=== PATIENT | female | born 1960 | race Caucasian/White ===

== ENCOUNTER → 2016-12-05 | Outpatient (CLI) | payer OTHER ==
[2016-12-05 11:56] LABS: ALT 18 U/L (9-52); AST 24 U/L (14-36); Alkaline Phosphatase 38 U/L (38-126); Anion Gap 7 mmol/L; Blood Urea Nitrogen 14 mg/dL (7-17); Calcium 9.2 mg/dL (8.4-10.2); Carbon Dioxide 28 mmol/L (22-30); Chloride 105 mmol/L (98-107); Glucose 59 mg/dL (74-99); Non-African American GFR(MDRD) >60 (>60 ml/min/1.73 sqM); Potassium 3.8 mmol/L (3.5-5.1); Sodium 140 mmol/L (137-145); Total Bilirubin 0.8 mg/dL (0.2-1.3); Total Protein 7.3 g/dL (6.3-8.2)
--- NOTE | 2016-12-05 12:48 | CT ---
EXAMINATION TYPE: CT ChestAbdPelvis w con DATE OF EXAM: 12/05/2016 COMPARISON: Previous study dated 06/19/2016 HISTORY: Lt breast CA CT DLP: 629.3 mGycm Automated exposure control for dose reduction was used. TECHNIQUE: Helical acquisition through the abdomen and pelvis was obtained without oral contrast but following the intravenous administration of 100 mL of Omnipaque 300. The data was formatted in the a xial, coronal and sagittal projections. FINDINGS: There is dependent atelectasis in the dependent portions of the lungs. The lungs are otherw ise clear. The thyroid gland is enlarged and heterogenous. There are several enhancing nodules. The largest josie ures 12.8 mm. This is identical in size to the previous study. Left axillary lymph node which previously measured 10.6 mm now measures 9.4 mm. There is no other sig nificant axillary, internal mammary, mediastinal or hilar adenopathy. The heart is mildly enlarged. T here is no pleural or pericardial fluid. The lesion in the dome of the liver which previously measure d 3.7 cm now measures 3.3 cm. Multiple other lesions within the liver have decreased in, security fro m the previous exam. The gallbladder is contracted. The spleen appears normal. There is continued thickening of the left adrenal gland. Left adrenal mass has decreased in size from 3.2 cm to 2 cm. The pancreas is unremarkable. Both kidneys demonstrate function and are morphologically normal. There is mild atheromatous calcification of the visualized arterial tree. There is no significant retroperitoneal, iliac or inguinal adenopathy. The uterus is unremarkable. The ovaries are normal. The bladder appears normal. There is no significant diverticular change and there is no radiographic evidence of diverticulitis. The appendix appears normal. Small bowel loops appear normal. There is no evidence of free fluid or free air. There continue to be innumerable sclerotic metastases throughout the skeleton. These do not appear to have changed significantly in comparison with previous IMPRESSION: 1. STABLE BONY METASTASES. 2. IMPROVEMENT IN THE SIZE OF THE PATIENT'S LEFT AXILLARY LYMPH NODE. 3. DECREASE IN THE SIZE OF THE HEPATIC DOME LESION. 4. THYROMEGALY, UNCHANGED FROM PREVIOUS. 5. IMPROVED APPEARANCE OF THE LEFT ADRENAL GLAND. 6. THE STUDY IS FELT TO BE STABLE OR SLIGHTLY IMPROVED.
[2016-12-05 13:04] LABS: Anisocytosis Slight; Aty Lym Flag Slight; CH 36.9; CHCM 33.1; HDW 2.51; HGB 13.1 gm/dL (11.4-16.0); MCH 37.6 pg (25.0-35.0); MCHC 33.6 g/dL (31.0-37.0); MCV 111.9 fL (80.0-100.0); Macrocytosis Marked; Mean Platelet Volume 8.3; RBC 3.48 m/uL (3.80-5.40); RDW 16.3 % (11.5-15.5); WBC 2.5 k/uL (3.8-10.6)
[2016-12-05 14:24] LABS: Add Differential Manual Differential
[2016-12-05 14:26] LABS: Manual Review Performed; Nucleated Red Blood Cells 0 /100 WBC (0-0); Total Cells Counted 100
== END | disposition home or self-care (01) ==
LOC: RADCTMAIN 11:00
PROVIDERS: ATTEND Internal Medicine Hematology & Oncology
DX: C50.312 Malignant neoplasm of lower-inner quadrant of left female breast (principal); C79.51 Secondary malignant neoplasm of bone; K76.9 Liver disease, unspecified; M25.519 Pain in unspecified shoulder; D72.819 Decreased white blood cell count, unspecified; G89.3 Neoplasm related pain (acute) (chronic)
CPT/HCPCS: 80053; 85025; 71260; 74177; 36415; Q9967

== ENCOUNTER → 2017-05-26 | Outpatient (CLI) | payer OTHER ==
[2017-05-26 13:32] LABS: Non-African American GFR(MDRD) >60 (>60 ml/min/1.73 sqM)
[2017-05-26 13:36] LABS: Blood Urea Nitrogen 13 mg/dL (7-17)
--- NOTE | 2017-05-26 14:25 | CT ---
EXAMINATION TYPE: CT ChestAbdPelvis w con DATE OF EXAM: 05/26/2017 COMPARISON: December 05, 2016 HISTORY: Follow up scan per patient CT DLP: 1733 mGycm CONTRAST: CT scan of the chest, abdomen and pelvis is performed with Oral Contrast and with IV Contrast, patien t injected with 100 mL of Omnipaque 300. CT Chest: LUNGS: The lungs are clear and free of infiltrate or atelectasis. No pulmonary nodule or mass is det ected. No pleural effusion or CT evidence of interstitial lung disease. MEDIASTINUM: Thoracic aorta is of normal caliber. The heart is not enlarged. No evidence for media stinal mass or adenopathy. HILAR STRUCTURES: No evidence for mass. No hilar adenopathy is appreciated. OTHER: Left axillary adenopathy persists and currently measures 9.4 mm versus 9.4 mm. No new axillary adenopathy appreciated. Left sided lumpectomy changes. There is evidence of thyroidomegaly. CONTRAST CT ABDOMEN AND PELVIS FINDINGS: LIVER/GB: No calcified gallstones. Lesion within the dome of the liver currently measures 3.3 x 2.2 cm versus 3.3 x 2.2 cm previously and appears essentially unchanged. No new hepatic lesions are iden tified. Biliary tree is of normal caliber. PANCREAS: No inflammation. No distinct mass. SPLEEN: No splenic enlargement. ADRENALS: Left adrenal lesion persists although is smaller in size and measures 1.0 centimeter versu s 1.4 cm. KIDNEYS/BLADDER: No hydronephrosis. No nephrolithiasis. No distinct renal mass. BOWEL: Normal appendix. Normal bowel caliber. No inflammation. GENITAL ORGANS: No gross abnormality. LYMPH NODES: No greater than 1cm abdominal or pelvic lymph nodes are appreciated. AORTA: No significant abnormality. OSSEOUS STRUCTURES: Again noted are lytic and blastic metastases throughout the visualized skeleton. OTHER: No significant additional abnormality is seen. IMPRESSION: 1. Stable osseous metastatic disease. 2. Stable lesion within the dome of the liver. 3. Stable left axillary adenopathy. 4. Continued improvement left adrenal gland nodule.
== END | disposition home or self-care (01) ==
LOC: RADCTMAIN 12:35
PROVIDERS: ATTEND Internal Medicine Hematology & Oncology
DX: C79.51 Secondary malignant neoplasm of bone (principal); C50.312 Malignant neoplasm of lower-inner quadrant of left female breast; K76.9 Liver disease, unspecified; R59.0 Localized enlarged lymph nodes; E27.8 Other specified disorders of adrenal gland
CPT/HCPCS: 82565; 84520; 71260; 74177; Q9967

== ENCOUNTER → 2017-09-16 | Outpatient (CLI) | payer OTHER ==
--- NOTE | 2017-09-16 15:22 | MR ---
EXAMINATION TYPE: MR thoracic spine wo/w con DATE OF EXAM: 09/16/2017 COMPARISON: NONE HISTORY: Back pain, breast CA CONTRAST: Performed utilizing 7.5 mL intravenous Gadavist gadolinium contrast. TECHNIQUE: Multiplanar, multiecho imaging on a 3.0 Nataly magnet is performed through the thoracic spi ne. Extensive metastatic lesions are throughout the visualized spine involving essentially every osseous structure. Compression deformities of T5, superior endplate T7, T9 are evident. At T5 there is some central osseous bulge with moderate anterior thecal sac compression. This may hav e cord contact. Cord deformity is not identified. No AP spinal canal stenosis is present. In the sagittal plane and some posterior T7 wall displacement into the spinal canal appears to be pre sent. This area is not visualized in the axial plane. Cord contact is not identified Spinal cord maintains normal signal through its visualized course. There is some exaggeration of the mid thoracic kyphosis Mild disc space narrowing within the mid to upper thoracic spine is present. No spinal canal stenosis is evident. Incidental note is made of a heterogenous appearance to the enlarged thyroid and the [id number] IMPRESSIONS: 1. Extensive metastatic disease throughout the visualized thoracic spine. 2. Compression deformities T5, T9 and superior endplate T7. 3. Posterior wall displacement with moderate focal compression centrally at T5 is in close approximat ion with the spinal cord without deformity or spinal canal stenosis. 4. Mild posterior wall bulging into the thecal sac is present T7 without stenosis. 5. No suspicious changes of cord compression.
== END | disposition home or self-care (01) ==
LOC: RADMRIMAIN 13:34
PROVIDERS: ATTEND Internal Medicine Hematology & Oncology
DX: C79.51 Secondary malignant neoplasm of bone (principal); C50.312 Malignant neoplasm of lower-inner quadrant of left female breast; M51.24 Other intervertebral disc displacement, thoracic region; G95.29 Other cord compression
CPT/HCPCS: 72157; A9581

== ENCOUNTER → 2017-10-06 | Outpatient (CLI) | payer MEDICARE, OTHER ==
[2017-10-06 19:33] LABS: Blood Urea Nitrogen 14 mg/dL (7-17)
--- NOTE | 2017-10-07 09:32 | CT ---
EXAMINATION TYPE: CT ChestAbdPelvis w con DATE OF EXAM: 10/06/2017 INDICATION: Breast CA, observation for mets, lower back pain COMPARISON: 05/26/2017 CT DLP: 1335 mGycm CONTRAST: Performed with Oral Contrast and with IV Contrast, patient injected with 100 mL of Isovue 300. TECHNIQUE: Axial images at 5 mm thick sections. Reconstructed images in the coronal plane. Delayed images through the kidneys. FINDINGS: CT CHEST: Thyroid is somewhat prominent. There is some heterogeneity within the inferior pole right lobe thyroi d. Underlying mass may be present. Consider additional evaluation with ultrasound. No suspicious lung nodules or focal infiltrates are present. No enlarged mediastinal or hilar adenopathy is evident. There is a 1.0 cm left axillary lymph node pr esent. The ascending aorta diameter at the level of the main pulmonary artery is 3.5 cm. The main pulmonary artery diameter at the bifurcation is 2.[address] ABDOMEN: Liver: There is an ill-defined hypodensity within the posterior right upper lobe liver measuring 4.3 x 2.7 cm. This is slightly smaller than the comparison study. Some biliary dilatation may be present. Spleen: Normal Pancreas: Normal Adrenal glands: There is some thickening of the left adrenal gland estimated 1.3 cm transverse dimens ion. This appears stable from prior study. Right adrenal gland appears normal. Gallbladder: Normal Kidneys: No masses are evident. No hydronephrosis is present. No cysts are present. Delayed images were obtained through the kidneys, which remain unremarkable. Aorta: Vascular calcification is within the aorta. Inferior vena cava: Normal. CT PELVIS: Loops of bowel within the abdomen and pelvis are normal. There are loops of bowel which are incom pletely distended or lack oral contrast limiting their evaluation. Appendix: Normal as visualized. Urinary bladder: Normal. Genitourinary structures: Uterus appears normal. Adnexal regions are unremarkable. Osseous structures: Multiple punctate sclerotic areas are throughout the pelvis. Sclerotic metastasis should be considered. These extend into the sacrum and spine. There are some lytic areas within the vertebral bodies is well. Findings were present previously. The lytic area in the posterior wall T10 vertebral level appears stable. Old compression deformities are within the mid and lower thoracic spi ne and appears stable without progression. IMPRESSIONS: 1. Stable appearance of multiple lytic and sclerotic lesions throughout the axial skeleton within the pelvis. 2. 1.0 cm lymph node left axillary region present previously. 3. Enlarged thickened adrenal gland appears stable. 4. Hypodensity within the posterior right upper liver slightly smaller than comparison 4. Enlarged thyroid appears stable.
== END | disposition home or self-care (01) ==
LOC: RADCTMAIN 18:42
PROVIDERS: ATTEND Internal Medicine Hematology & Oncology
DX: E04.9 Nontoxic goiter, unspecified (principal); R93.2 Abnormal findings on diagnostic imaging of liver and biliary tract; C50.312 Malignant neoplasm of lower-inner quadrant of left female breast; Z88.5 Allergy status to narcotic agent
CPT/HCPCS: 82565; 84520; 71260; 74177; 36415; Q9967

== ENCOUNTER → 2018-02-06 | Outpatient (CLI) | payer MEDICARE ==
[2018-02-06 12:48] LABS: Blood Urea Nitrogen 13 mg/dL (7-17)
--- NOTE | 2018-02-06 14:37 | CT ---
EXAMINATION TYPE: CT ChestAbdPelvis w con DATE OF EXAM: 02/06/2018 COMPARISON: 10/06/2017 and 06/19/2016 HISTORY: History of breast cancer CT DLP: 866.4 mGycm. Automated Exposure Control for Dose Reduction was Utilized. CONTRAST: CT scan of the thorax, abdomen and pelvis is performed with IV Contrast, patient injected with 100 mL of Isovue M300. FINDINGS: LUNGS: The lungs are grossly clear, there is no concerning parenchymal mass or nodule identified. Sca ttered areas of subsegmental atelectasis are seen. There is no pleural effusion or pneumothorax see n. The tracheobronchial tree is patent. MEDIASTINUM: There are no greater than 1 cm hilar or mediastinal lymph nodes. No pericardial effusi on is seen. OTHER: Approximately 9 mm left axillary lymph node is similar to the prior (1 cm on the prior exam). Thyroid gland again is enlarged and heterogenous extending to the sternal notch. LIVER/GB: There is stability of the right hepatic dome approximately 4.2 x 2.7 cm metastatic lesion ( previous measurement of 4.3 x 2.7 cm) with multiple smaller metastatic hepatic lesion such as on seri es 3 image 44, image 53, image 50 and image 47 similar to the prior. These are also seen in the exam of 06/19/2016. The gallbladder is partially contracted. PANCREAS: No significant abnormality is seen. SPLEEN: No significant abnormality is seen. ADRENALS: There is persistent thickening of the left adrenal gland, similar to multiple prior exams. There does appear to be a discrete left adrenal gland lesion suspicious for metastasis measuring 1.2 cm on series 3 image 49. This is similar to the prior. KIDNEYS: There is malrotation of the right kidney, otherwise the kidneys are unremarkable without hyd ronephrosis. BOWEL: No evidence of large or small bowel dilatation. Moderate amount retained colonic stool is seen . Appendix is upper limits of normal size however there is no right lower quadrant or periappendiceal fat stranding. GENITAL ORGANS: No gross abnormality seen. LYMPH NODES: There is a right periaortic lymph node enlarged from the prior measuring1.0 cm in short axis on series 3 image 56. Additional prominent but nonenlarged left perirenal lymph node measures 9 mm in short axis on image 55 OSSEOUS STRUCTURES: Diffuse skeletal osseous metastasis, mixed sclerotic and lytic, is seen throughou t the visualized axial skeleton this was appreciated on prior exams. OTHER: Moderate calcific atheromatous changes are seen of the abdominal aorta and its branches. Abdom inal aorta is of normal course and caliber. IMPRESSION: Overall stable multifocal metastatic disease other than slight increase in size of a right periaortic lymph node. Metastatic disease includes multifocal hepatic metastasis, diffuse skeletal metastasis, left axillary fabiola metastasis, and left adrenal gland metastasis.
== END | disposition home or self-care (01) ==
LOC: RADCTMAIN 12:14
PROVIDERS: ATTEND Internal Medicine Hematology & Oncology
DX: C79.51 Secondary malignant neoplasm of bone (principal); C78.7 Secondary malignant neoplasm of liver and intrahepatic bile duct; C79.72 Secondary malignant neoplasm of left adrenal gland; C79.89 Secondary malignant neoplasm of other specified sites; C50.312 Malignant neoplasm of lower-inner quadrant of left female breast; Z88.5 Allergy status to narcotic agent
CPT/HCPCS: 82565; 84520; 71260; 74177; 36415; Q9967

== ENCOUNTER 2018-03-28 16:46 | Emergency (ER) | payer MEDICARE ==
[2018-03-28 16:52] VITALS: TEMP 98.1
[2018-03-28] MEDS ORDERED: HYDROmorphone 0.5 MG/0.5 ML SYRINGE IM STA (17:27)
--- NOTE | 2018-03-28 17:58 | XR ---
EXAMINATION TYPE: XR Hip RT and AP Pelvis DATE OF EXAM: 03/28/2018 COMPARISON: NONE HISTORY: Fall, reported history of metastatic breast carcinoma TECHNIQUE: A single AP view of the pelvis is obtained. Two views of the right hip are obtained. FINDINGS: Again seen is diffuse sclerotic lesions throughout the visualized osseous structures which are most c onsistent with reported history of metastatic breast carcinoma. There is no acute fracture/dislocation evident in the pelvis. The hip and sacroiliac joints appear s ymmetric and unremarkable. The overlying soft tissue appears unremarkable. Two views of right hip show no acute fracture or dislocation. No focal lytic or sclerotic lesion see n in the proximal femur. The overlying soft tissue is unremarkable. IMPRESSION: 1. No acute fracture or dislocation. 2. Diffuse sclerotic metastasis.
--- NOTE | 2018-03-28 18:00 | XR ---
EXAMINATION TYPE: XR knee complete bilateral DATE OF EXAM: 03/28/2018 CLINICAL HISTORY: Fall, history of metastatic breast carcinoma TECHNIQUE: Three views of the right knee are obtained. COMPARISON: None. FINDINGS: There is no acute fracture/dislocation. Joint spaces are preserved. No radio opaque foreig n bodies or soft tissue swelling. No suspicious lytic or sclerotic osseous lesions. IMPRESSION: No acute fracture or dislocation.
--- NOTE | 2018-03-28 18:03 | XR ---
EXAMINATION TYPE: XR shoulder complete RT DATE OF EXAM: 03/28/2018 CLINICAL HISTORY: Fall, history of breast carcinoma TECHNIQUE: Three views of the right shoulder are obtained. COMPARISON: None. FINDINGS: There is no acute fracture/dislocation evident in the right shoulder. The acromioclavicul ar and glenohumeral joint spaces appear within normal limits. Mixed lytic and sclerotic lesions are s een predominantly involving the glenoid and scapula. Several ribs also demonstrate sclerotic lesions. Scapular Y view reveals expansile and sclerotic lesions of multiple posterior ribs which may repeat represent healing fractures or more likely additional metastatic lesions. IMPRESSION: 1. No acute fracture or dislocation. 2. Numerous mixed lytic and sclerotic osseous lesions which are most consistent with known metastatic breast carcinoma.
--- NOTE | 2018-03-28 18:49 | ED ---
General Adult HPI - General Chief complaint: Fall Stated complaint: Fell Time Seen by Provider: 03/28/18 17:00 Source: patient, RN notes reviewed Mode of arrival: wheelchair Limitations: no limitations - History of Present Illness Initial comments: 58-year-old female presents to the emergency determine for a chief complaint of fall about one hour ago. Patient was walking through her living room when she stepped on a small toy. Patient states this caused her to fall onto her bilateral knees, right hip, and right shoulder. Patient did not injure her head neck or back. She did not lose consciousness. She denies any dizziness or lightheadedness preceding the fall. Patient states she fell on carpet. Patient states she has a history of metastatic breast cancer to the bone and would like x-rays to ensure nothing is broken. Patient states she takes Dilaudid and fentanyl at home for pain. Patient has no other complaints at this time including shortness of breath, chest pain, abdominal pain, nausea or vomiting, headache, or visual changes. - Related Data Home Medications Medication Instructions Recorded Confirmed Ondansetron Odt [Zofran ODT] 8 mg PO Q8HR PRN 04/11/15 04/11/15 Previous Rx's Medication Instructions Recorded Anastrozole [Arimidex] 1 mg PO DAILY #30 tab 04/03/15 Bisacodyl [Dulcolax] 5 mg PO DAILY PRN #30 tablet. 04/03/15 HYDROmorphone [Dilaudid] 2 mg PO Q2HR PRN #60 tab 04/03/15 Lactulose [Cephulac] 15 gm PO BID #480 ml 04/03/15 Omeprazole [PriLOSEC] 20 mg PO AC-BRKFST #30 capsule. 04/03/15 fentaNYL 50MCG/HR PATCH [Duragesic 1 patch TRANSDERM Q72H #12 patch 04/03/15 50MCG/HR] Levalbuterol Hfa Inhaler [Xopenex 1 puff INHALATION Q8HR #1 inhaler 04/21/15 Hfa Inhaler] Metoclopramide [Reglan] 5 mg PO ACHS #120 tab 04/21/15 Allergies Allergy/AdvReac Type Severity Reaction Status Date / Time meperidine HCl [From Demerol] Allergy Rash/Hives Verified 09/22/18 16:52 Review of Systems ROS Statement: Those systems with pertinent positive or pertinent negative responses have been documented in the HPI. ROS Other: All systems not noted in ROS Statement are negative. Past Medical History Past Medical History: Cancer Additional Past Medical History / Comment(s): metastatic breast cancer History of Any Multi-Drug Resistant Organisms: None Reported Past Surgical History: Orthopedic Surgery Additional Past Surgical History / Comment(s): LEFT KNEE SURGERY 2004 Past Anesthesia/Blood Transfusion Reactions: No Reported Reaction Past Psychological History: No Psychological Hx Reported Smoking Status: Current every day smoker Past Alcohol Use History: None Reported Past Drug Use History: None Reported - Past Family History Father History Unknown: Yes Mother History Unknown: Yes General Exam - General Exam Comments Initial Comments: Right knee and hip: Patient is able to flex right knee to 90 and fully extend right knee. 90 flexion of the right hip with full abduction and and extension. There is a small abrasion noted to the anterior right knee. Mild generalized tenderness to the right knee. Sensation intact in right lower extremity. PT pulse 2+ and capillary refill less than 2 seconds. No significant swelling noted to the right knee. No calf tenderness, negative Homans sign. Left knee: Patient is able to flex left knee to 60 and fully extend left knee. There is a small abrasion noted to the anterior left knee. Mild generalized tenderness to the left knee. Sensation intact in left lower extremity. PT pulse 2+ and capillary refill less than 2 seconds. Mild edema noted of left knee. No calf tenderness, negative Homans sign. Right shoulder: Patient has full range motion of the right shoulder including flexion and extension and abduction. Capillary refill less than 2 seconds and radial pulse 2+ in the right upper extremities. Sensation intact in right upper extremity including all digits. Real Estate Agent/Broker strength 5 out of 5. Mild tenderness noted to the posterior right shoulder. No tenderness elsewhere. Limitations: no limitations General appearance: alert, in no apparent distress Head exam: Present: atraumatic, normocephalic, normal inspection Eye exam: Present: normal appearance, PERRL, EOMI. Absent: scleral icterus, conjunctival injection, periorbital swelling ENT exam: Present: normal exam, mucous membranes moist Neck exam: Present: normal inspection, full ROM. Absent: tenderness, meningismus, lymphadenopathy Respiratory exam: Present: normal lung sounds bilaterally. Absent: respiratory distress, wheezes, rales, rhonchi, stridor Cardiovascular Exam: Present: regular rate, normal rhythm, normal heart sounds. Absent: systolic murmur, diastolic murmur, rubs, gallop, clicks GI/Abdominal exam: Present: soft, normal bowel sounds. Absent: distended, tenderness, guarding, rebound, rigid Back exam: Absent: tenderness (No tenderness in the cervical thoracic or lumbar spines) Neurological exam: Present: alert, oriented X3, CN II-XII intact Psychiatric exam: Present: normal affect, normal mood Course Vital Signs 03/28/18 16:49 Temperature 98.1 F Pulse Rate 95 Respiratory 18 Rate Blood Pressure 129/85 O2 Sat by Pulse 100 Oximetry Medical Decision Making - Medical Decision Making 58-year-old female presents to the emergency department for a chief complaint of fall occurring about one hour ago. Patient is a history of metastatic breast cancer to the bone. Patient states she injured bilateral knees, right hip, and right knee. Patient is concerned due to her metastatic cancer and would like x-rays of all joints stretcher nothing is broken. Daughter agrees with this. Exam as noted in the physical exam. Neurovascular intact in all extremities. Patient is ambulatory in the emergency department and is able to walk without difficulty.No acute fracture or dislocation of the right hip or pelvis. Diffuse sclerotic metastasis from known metastatic breast carcinoma. X -ray of the right shoulder shows no acute fracture or dislocation with numerous mixed lytic and sclerotic osseous lesions which are most consistent with known metastatic breast carcinoma. X-ray of the right knee shows no acute fracture or dislocation. Patient's pain is feeling much better after reevaluation. She is still able to ambulate without difficulty. She will be discharged home. She will continue to take Tylenol and Dilaudid at home for pain as previously directed. She will return if she has any worsening symptoms and she will follow up with primary care in 1-2 days. This was discussed with Dr Johnson. Disposition Clinical Impression: Fall Disposition: HOME SELF-CARE Condition: Good Instructions: R.I.C.E. Treatment (ED) Additional Instructions: Please continue to take pain medications for pain. Please rest ice and elevate the injuries. Please keep the abrasions clean and dry. Follow-up with primary care in 1-2 days. Return if you have any worsening symptoms. Is patient prescribed a controlled substance at d/c from ED?: No Referrals: Real Foy MD [Primary Care Provider] - 1-2 days Time of Disposition: 18:48
[2018-03-28 19:03] VITALS: BP 125/71; PULSE 87; RESP 16
== END 2018-03-28 19:00 | disposition home or self-care (01) ==
LOC: EC 16:46
DX: S80.211A Abrasion, right knee, initial encounter (principal); S80.212A Abrasion, left knee, initial encounter; S79.911A Unspecified injury of right hip, initial encounter; F17.200 Nicotine dependence, unspecified, uncomplicated; Z88.5 Allergy status to narcotic agent; Z85.3 Personal history of malignant neoplasm of breast; Z85.830 Personal history of malignant neoplasm of bone; W18.31XA Fall on same level due to stepping on an object, initial encounter; Y93.01 Activity, walking, marching and hiking; Y92.008 Other place in unspecified non-institutional (private) residence as the place of occurrence of the external cause
CPT/HCPCS: 73562; 73502; 73030; 99283; 96372; J1170

== ENCOUNTER → 2018-06-18 | Outpatient (CLI) | payer MEDICARE ==
[2018-06-18 09:27] LABS: Blood Urea Nitrogen 15 mg/dL (7-17)
--- NOTE | 2018-06-18 11:13 | CT ---
EXAMINATION TYPE: CT ChestAbdPelvis w con DATE OF EXAM: 06/18/2018 INDICATION: Follow up breast CA. COMPARISON: 02/06/2018 CT DLP: 1353 mGycm CONTRAST: Performed with Oral Contrast and with IV Contrast, patient injected with 100 mL of Isovue 300. TECHNIQUE: Axial images at 5 mm thick sections. Reconstructed images in the coronal plane. Delayed images through the kidneys. FINDINGS: CT CHEST: Thyroid appears enlarged and heterogenous. This could be further evaluated with ultrasound. Findings are similar to comparison.. No suspicious lung nodules or focal infiltrates are present. No enlarged mediastinal or hilar adenopathy is evident. The ascending aorta diameter at the level of the main pulmonary artery is 3.2 cm. The main pulmonary artery diameter at the bifurcation is 2.7 cm. Minimal coronary artery calcification may be present. CT ABDOMEN: Liver: There are multiple hypodensities scattered throughout the liver. There is a large hypodensity measuring 2.7 x 3.4 cm in the posterior right lobe liver adjacent diaphragm. This is smaller than th e comparison. Hypodensities in the lower right lobe liver which are somewhat larger than comparison. Hypodensity measuring 0.8 cm right anterior liver. Series 3 image 49. There is a new hypodensity in t he posterior right lobe liver measuring 1.7 cm has some peripheral enhancement. Findings are suggesti ve for metastatic disease. Spleen: Normal Pancreas: Normal Adrenal glands: Right adrenal gland appears normal. Left adrenal gland is thickened measuring 1.3 cm in transverse dimension. Gallbladder: Normal Kidneys: No masses are evident. No hydronephrosis is present. No cysts are present. Delayed images were obtained through the kidneys, which remain unremarkable. Aorta: Vascular calcification is within the aorta. Inferior vena cava: Normal. CT PELVIS: Loops of bowel within the abdomen and pelvis are normal. There are loops of bowel which are incom pletely distended or lack oral contrast limiting their evaluation. Appendix: Normal as visualized. Urinary bladder: Normal. Genitourinary structures: Uterus appears normal. Adnexal regions are within normal limits. There may be a 1.9 cm cyst on the left ovary. Osseous structures: There are multiple punctate sclerotic areas throughout the osseous structures. A few lytic areas may be within vertebral bodies. Findings are compatible with metastatic disease. IMPRESSIONS: 1. Metastatic changes within the liver. 2. Multiple osseous metastatic disease changes.
== END | disposition home or self-care (01) ==
LOC: RADCTMAIN 08:16
PROVIDERS: ATTEND Internal Medicine Hematology & Oncology
DX: C50.312 Malignant neoplasm of lower-inner quadrant of left female breast (principal); C78.7 Secondary malignant neoplasm of liver and intrahepatic bile duct; C79.51 Secondary malignant neoplasm of bone
CPT/HCPCS: 82565; 84520; 71260; 74177; 36415; Q9967

== ENCOUNTER → 2018-07-01 | Day surgery (SDC) | payer MEDICARE ==
[~2018-07-01] MED LIST: ALPRAZolam 0.5 MG TAB PO ONE; HYDROmorphone 1 MG/ML 1 ML SYRINGE IVP PRN
[2018-07-01 09:29] VITALS: BP 111/54; PULSE 81; RESP 14; TEMP 98.3
[2018-07-01 09:37] LABS: INR 0.9 (<1.2); Prothrombin Time 10.2 sec (9.0-12.0)
[2018-07-01 09:52] LABS: Mean Platelet Volume 8.4; Platelet Count 176 k/uL (150-450)
--- NOTE | 2018-07-01 11:46 | US ---
Discontinued liver biopsy HISTORY: Liver masses Real-time ultrasound was performed the liver. Exam correlated to prior CT 06/18/2018, 02/06/2018. Following discussion of the potential liver biopsy with the patient and patient's daughter and follow ing consultation with the referring clinician telephonically, it is elected to defer biopsy at this t jd. Consider follow-up CT in 3-6 months. IMPRESSION: Aborted liver biopsy
== END ==
LOC: RADPROMAIN 08:57
PROVIDERS: ATTEND Internal Medicine Hematology & Oncology
DX: K76.89 Other specified diseases of liver (principal); C50.312 Malignant neoplasm of lower-inner quadrant of left female breast; Z53.9 Procedure and treatment not carried out, unspecified reason
CPT/HCPCS: 76705; 85049; 85610

== ENCOUNTER → 2018-10-01 | Outpatient (CLI) | payer MEDICARE ==
--- NOTE | 2018-10-01 15:03 | CT ---
EXAMINATION TYPE: CT ChestAbdPelvis w con DATE OF EXAM: 10/01/2018 COMPARISON: 06/18/2018 HISTORY: 58-year-old female follow-up, breast cancer, observation for metastases. TECHNIQUE: Contiguous axial scanning of the chest, abdomen, and pelvis performed with IV Contrast, pa tient injected with 100 mL of Isovue 300. Delayed images through the kidneys were obtained. Coronal/s agittal reconstructions performed. CT DLP: 1575 mGycm Automated exposure control for dose reduction was used. FINDINGS: CHEST: Heart normal size without pericardial effusion. Aorta normal caliber with conventional arch vessel branching anatomy and mild atherosclerotic arch ca lcifications. Suggestion of multiple underlying nodules in the thyroid gland measuring up to 1.1 cm on the right, u nchanged. No thoracic lymphadenopathy by CT size criteria. The skin and trabecular thickening especially in the left breast is unchanged. Mild centrilobular emphysema and scattered mild interstitial scarring. No consolidation or pleural ef fusion. ABDOMEN: There has been increase in size of previous liver lesions and development of numerous new liver lesio ns as well. For example, lesion in the posterior right hepatic dome measures 2.7 cm versus 1.7 cm, previously. Lesion in the anterior mid liver measures 3.1 cm versus 8 mm, previously. Lesion in the right liver lobe posteriorly measures 2.5 cm versus 1.4 cm, previously. Again, a number of new heterogeneously enhancing lesions are present as well. The larger area of irregular hypodensity at the right hepatic dome is overall similar and could repre sent a site of treated disease. 1.3 cm nodularity right adrenal gland is unchanged. 2.2 x 1.4 cm nodularity left adrenal gland is unc hanged. Right kidney is slightly malrotated. Kidneys otherwise unremarkable as is the mildly atrophic pancrea s. Moderate atherosclerotic calcifications abdominal aorta and iliac arteries. Prominent left para-aortic lymph node measures 9 mm, unchanged. Aortocaval lymph node measures 1 cm, unchanged. Otherwise, no mesenteric or retroperitoneal lymphadenopathy seen. No dilated small bowel, free fluid, or free air. Moderate scattered stool in the abdomen. No pericolonic inflammatory change. Pelvis: Bladder under distended. Uterus is visualized. A 2.1 cm cystic structure in the left ovary unchanged back to at least 02/06/2018 and can be followed annually. Pelvic phleboliths. No abnormal fluid collect ion in the pelvis or pelvic lymphadenopathy. Bones: Multiple sclerotic foci throughout the skeleton are unchanged. Angulation deformity of the sternal ma nubrium is unchanged. Mild compression injury of T5 is unchanged. There IMPRESSION: 1. NEW ENLARGING NUMEROUS HEPATIC LESIONS SUGGEST DISEASE PROGRESSION. 2. BILATERAL LEFT GREATER THAN RIGHT ADRENAL NODULARITY MEASURING UP TO 2.2 CM IS UNCHANGED ARE A COUPLE MILDLY ENLARGED RETROPERITONEAL LYMPH NODES. 3. STABLE DIFFUSE OSSEOUS METASTATIC DISEASE. 4. SKIN AND TRABECULAR THICKENING INVOLVING THE LEFT BREAST LIKELY REFLECTING TREATMENT CHANGE. 5. STABLE 2.1 CM CYSTIC STRUCTURE OF THE LEFT OVARY. IN A POSTMENOPAUSAL FEMALE, ANNUAL ULTRASOUND TORRES RVEILLANCE CAN BE PERFORMED.
== END | disposition home or self-care (01) ==
LOC: RADCTMAIN 12:39
PROVIDERS: ATTEND Internal Medicine Hematology & Oncology
DX: C79.51 Secondary malignant neoplasm of bone (principal); C50.312 Malignant neoplasm of lower-inner quadrant of left female breast; K76.9 Liver disease, unspecified; E27.8 Other specified disorders of adrenal gland; N83.202 Unspecified ovarian cyst, left side
CPT/HCPCS: 82565; 84520; 71260; 74177; 36415; Q9967

== ENCOUNTER 2018-10-12 10:01 | Observation (INO) | payer MEDICARE ==
[2018-10-12] MEDS ORDERED: ALPRAZolam 0.5 MG TAB PO STA (10:55)
[2018-10-12 10:58] LABS: Mean Platelet Volume 9.1
[2018-10-12 11:05] LABS: Prothrombin Time 10.5 sec (9.0-12.0)
[2018-10-12 11:21] LABS: Platelet Count 78 k/uL (150-450)
[2018-10-12] MEDS ORDERED: HYDROmorphone 1 MG/ML 1 ML SYRINGE IVP STA (12:08)
[2018-10-12] MEDS ORDERED: SODIUM CHLORIDE 0.9% 500 ML 500 ML IV ONE (13:42)
[2018-10-12 14:06] LABS: Anisocytosis Slight; HCT 27.2 % (34.0-46.0); HGB 9.6 gm/dL (11.4-16.0); MCH 37.6 pg (25.0-35.0); MCHC 35.1 g/dL (31.0-37.0); Macrocytosis Marked; Mean Platelet Volume 9.7; RBC 2.54 m/uL (3.80-5.40); RDW 17.5 % (11.5-15.5)
[2018-10-12 14:13] LABS: Platelet Count 70 k/uL (150-450)
--- NOTE | 2018-10-12 15:16 | US ---
EXAMINATION TYPE: US abdomen limited DATE OF EXAM: 10/12/2018 COMPARISON: NONE CLINICAL HISTORY: to [facility] bay #[id number].. No sizable fluid fluid collections identified. IMPRESSION: No sizable fluid collection identified.
--- NOTE | 2018-10-12 15:20 | P.CONS ---
History of Present Illness - Reason for Consult Consult date: 10/12/18 Metastatic Breast Cancer Requesting physician: Jayy Osman - Chief Complaint Hypotension, Anemia - History of Present Illness Ms. Robles is a very nice patient of Dr. Goodman who was originally evaluated in March of 2015 when she presented with hypercalcemia and back pain. She was found to have locally advanced and metastatic left breast cancer at that time. MRI Spine revealeed diffuse constance mets, with pathological compression fracture at T9 level. CT scans C/A/P revealed left breast density, left axillary nodes, innumerable liver lesions, largest at that time [id number] in the right lobe. Pathology significant for invasive lobular carcinoma, ER/ND positive, [id number] Neg by FISH (2+IHC). She initially refused chemotherapy despite recommendations given her bulky disease presentation and agreed to aromatase inhibitor with Arimidex which was started on 03/29/2015. She also started Xgeva and continued on this monly to present [id number])She also received radiation therapy with palliative intent to T9. 2015 - visceral response to treatment, although progressive bone mets - 08/20/15 Ibrance was added 09/2017 - T-Spine MRI for worsening back pain which revealed compression deformity at T5 - underwent palliative radiation 06/2018 - Repeat CT C/A/P revealed worsening liver lesion and she was referred for ultrasound guided biopsy. Dr. Rebollar reviewed her images at this time and it was felt there was not further progression and liver mets appeared stable, biopsy was cancelled and she was restarted on Femara and Ibrance. Although on 10/01/18 CT C/A/P revealed further disease progression in the liver along with patient worsening symptoms. The clear progression at this time was discussed with Dr. Foy and patient and recommendations for liver biopsy in order to repeat ER/ND and [id number] receptors was set up. Ibrance was placed on hold She presented today for her planned outpatient biopsy. On 10/06/18 - WBC = 3.5, Hgb = 11.4, Platelet Count = 109. 4/12/23 - CMP was outstanding Post Procedure Bleeding noted, CBC shows Hemoglobin 9.6, Platelets 70. Blood pre ssure 90s/50s, elevated heart rate. I spoke to Dr. Garner and although no explicit signs of active bleeding, we will admit to medicine and monitor overnight. I did go to EUS and see patient who is alert and oriented with family at bedside. Coags and Fibrinogen checked. Serial CBC will be checked along with q2-4 hour Vitals. We will give platelets one unit at this time for signs of bleeding and platelet count less than 100. Review of Systems A 14 point review of systems assessed and completed and all negative except HPI. Past Medical History Past Medical History: Cancer Additional Past Medical History / Comment(s): metastatic breast cancer originally dx 2014 -last dose chemo oral dose 06-22-18-pt states "was told by Dr Foy on 06-23-18 to have liver bx done to change chemo and was told the oral chemo no longer working has new tumor growth to liver"-radiation October 2017 & Apr 2015,bone mets-radiation to spine , started on oral chemo 07/01/18 and then stopped 10/06/18 History of Any Multi-Drug Resistant Organisms: None Reported Past Surgical History: Orthopedic Surgery Additional Past Surgical History / Comment(s): LEFT KNEE SURGERY 2004 Past Anesthesia/Blood Transfusion Reactions: No Reported Reaction Past Psychological History: Anxiety Smoking Status: Current every day smoker Past Alcohol Use History: None Reported Additional Past Alcohol Use History / Comment(s): started smoking at age 19,on and off <1ppd Past Drug Use History: None Reported - Past Family History Father History Unknown: Yes Family Medical History: Coronary Artery Disease (CAD), CVA/TIA Mother History Unknown: Yes Family Medical History: Cancer Additional Family Medical History / Comment(s): breast Medications and Allergies Home Medications Medication Instructions Recorded Confirmed Type ALPRAZolam [Xanax] 0.25 mg PO Q8H PRN 06/24/18 10/12/18 History HYDROmorphone [Dilaudid] 4 mg PO Q2HR PRN 06/24/18 10/12/18 History Letrozole [Femara] 2.5 mg PO DAILY 06/24/18 10/12/18 History fentaNYL 75MCG/HR PATCH [Duragesic 1 patch TRANSDERM Q72H 10/07/18 10/12/18 History 75MCG/HR] Allergies Allergy/AdvReac Type Severity Reaction Status Date / Time meperidine HCl [From Demerol] Allergy Rash/Hives Verified 10/12/18 15:25 Physical Exam Vitals: Vital Signs Temp Pulse Resp BP Pulse Ox 10/12/18 14:15 97 16 92/55 98 10/12/18 14:01 96 16 96/57 96 10/12/18 13:44 85 16 99/55 96 10/12/18 13:31 82 16 105/57 95 10/12/18 13:01 78 16 91/53 96 10/12/18 12:46 78 16 88/52 96 10/12/18 12:31 77 16 86/47 96 10/12/18 12:16 86 16 109/55 96 10/12/18 12:10 79 18 129/76 10/12/18 12:00 78 16 131/69 10/12/18 11:46 18 130/74 10/12/18 10:44 97.6 F 74 16 113/63 Intake and Output 10/11/18 10/12/18 10/12/18 22:59 06:59 14:59 Intake Total 90 Balance 90 Intake: Oral 90 Gen: Alert and oriented, NAD Head: NC/NT Neck - Supple, Trachea is midline Lungs: CTA Bilat, no increased effort Heart Rate: Normal and Tachy Abdomen: Soft, Mild tender Extremities: No rashes or Lesions Neuro: No Motor or sensory deficits noted Results CBC & Chem 7: 10/12/18 18:30 10/12/18 18:30 Labs: Abnormal Lab Results - Last 24 Hours (Table) 10/12/18 10/12/18 Range/Units 10:30 13:45 WBC 2.0 L (3.8-10.6) k/uL RBC 2.54 L (3.80-5.40) m/uL Hgb 9.6 L (11.4-16.0) gm/dL Hct 27.2 L (34.0-46.0) % MCV 107.0 H (80.0-100.0) fL MCH 37.6 H (25.0-35.0) pg RDW 17.5 H (11.5-15.5) % Plt Count 78 L 70 L (150-450) k/uL US - abdomen: report reviewed Assessment and Plan Plan: Assessment and Recommendations: 1. Metastatic Breast Cancer - - Originally Diagnosed 2014 - Invasive Lobular Carcinoma ER/ND Positive with Difffuse Bone Mets, pathological compression and Liver Lesions at time of diagnosis - Aromatase Inhibitor, Ibrance, and Xgeva controlled disease >2years with inte rmittent PRN Pallaiative radiation Treatments to spine T5, T9 - Now with appearance of progression in liver and status post Liver Biopsy today 10/12/18, with concern of post procedural bleeding 2. Normocytic Anemia: - Monitor CBC, Hemoglobin on 10/10/18 = 11.2 - Iron Studies 3. Thrombocytopenia: Secondary to malignancy and/progressive liver and possible bone marrow mets. - Check Coags and if fibrinogen decreased and/or INR/PT/PTT Prolonged in the picture of active bleeding will order FFP or Cryo 4. Hypotension: Secondary to probable post procedural blood loss: - Monitor closely - IV Hydration Fluids - Q2-4 hour Vitals 5. Hypokalemia: - Check Mag - K-dur [id number] today Admit to floor on observation, would like to admit to medicine Dr. Pearl per patient request.
--- NOTE | 2018-10-12 15:42 | CT ---
EXAMINATION TYPE: CT biopsy liver DATE OF EXAM: 10/12/2018 COMPARISON: 10/01/2018 HISTORY: Breast cancer and enlarging liver masses CT DLP: 8mGycm The procedure was explained to the patient and the patient's family. The risks, complications includ ing life-threatening bleeding, benefits, and alternatives were discussed and any questions were answe red. Informed consent was obtained. Patient was placed prone on the CT table and prepped and draped in the usual sterile fashion. All elements of maximal barrier and sterile technique utilized. Utilizing CT guidance, an 18 gauge core biopsy needle access into the right lobe of the liver was ac hieved and a single 18 gauge core sample was obtained. Single FNA sample was also obtained. The toribio ent was stable throughout the procedure and remained stable upon discharge. IMPRESSION: 1. Successful 18 gauge core biopsy of the liver.
[2018-10-12 15:53] LABS: Partial Thromboplastin Time 25.7 sec (22.0-30.0); Prothrombin Time 10.8 sec (9.0-12.0)
[2018-10-12] MEDS ORDERED: ALPRAZolam 0.25 MG TAB PO PRN (18:05)
[2018-10-12] MEDS: HYDROmorphone 4 MG TABLET PO PRN ×2 (18:31→22:06)
[2018-10-12 19:17] LABS: ALT 21 U/L (9-52); AST 36 U/L (14-36); Albumin 2.9 g/dL (3.5-5.0); Alkaline Phosphatase 47 U/L (38-126); Anion Gap 5 mmol/L; Blood Urea Nitrogen 12 mg/dL (7-17); Calcium 8.4 mg/dL (8.4-10.2); Carbon Dioxide 26 mmol/L (22-30); Chloride 106 mmol/L (98-107); Glucose 115 mg/dL (74-99); Potassium 3.3 mmol/L (3.5-5.1); Sodium 137 mmol/L (137-145); Total Bilirubin 0.5 mg/dL (0.2-1.3); Total Protein 5.5 g/dL (6.3-8.2)
[2018-10-12 19:30] LABS: Anisocytosis Slight; HCT 31.7 % (34.0-46.0); HGB 10.4 gm/dL (11.4-16.0); MCH 35.4 pg (25.0-35.0); MCHC 32.7 g/dL (31.0-37.0); MCV 108.3 fL (80.0-100.0); Macrocytosis Marked; Mean Platelet Volume 8.6; RBC 2.92 m/uL (3.80-5.40); RDW 16.9 % (11.5-15.5); WBC 2.4 k/uL (3.8-10.6)
[2018-10-12 19:35] LABS: Platelet Count 76 k/uL (150-450)
[2018-10-12] MEDS ORDERED: POTASSIUM CHLORIDE ER 20 MEQ TAB.ER PO STA ×2 (20:43→21:05)
--- NOTE | 2018-10-12 20:58 | XR ---
EXAMINATION TYPE: XR chest 1V portable DATE OF EXAM: 10/12/2018 COMPARISON: 04/19/2015 HISTORY: Breast cancer TECHNIQUE: Single frontal view of the chest is obtained. FINDINGS: There is no heart failure. There is a question of a 1.5 cm density left upper lobe. Costop hrenic angles are clear. Heart size is normal. There are sclerotic foci seen in the ribs as well as t he partly visualized shoulder joints. IMPRESSION: There is a new poorly marginated infiltrate left upper lobe or rib blastic change compare d to old exam. There is clearing of the mild heart failure compared to old exam. Osteoblastic changes consistent with metastatic disease.
[2018-10-12] MEDS ORDERED: HYDROcodone/APAP 5-325MG 1 EACH TAB PO PRN (21:05)
[2018-10-12] MEDS ORDERED: TEMAZEPAM 15 MG CAP PO PRN (21:05)
[2018-10-12 21:07] LABS: Lymphocytes # (M) 1.01 k/uL (1.0-4.8); Neutrophils % (M) 50 %; Nucleated Red Blood Cells 0 /100 WBC (0-0); Total Cells Counted 100
--- NOTE | 2018-10-12 23:01 | HP ---
HISTORY AND PHYSICAL CHIEF COMPLAINT: Pain and swelling and some bleeding after liver biopsy and mild hypertension. HISTORY OF PRESENT ILLNESS: This 58-year-old woman with a past medical history of multiple medical problems including history of metastatic breast cancer, being followed by Dr. Foy in the outpatient setting, also has a history of orthopedic surgery and anxiety also. The patient has had repeat CT scan showed worsening liver lesions. The patient underwent a CT-guided liver biopsy. After liver biopsy. The patient had blood pressure 90/50s and elevated heart rate and also some pain and swelling of the right lower part of the chest. The patient was admitted for further evaluation at this time. There is no history of fevers or rigors, no headache, loss of consciousness, seizures. PAST MEDICAL HISTORY: History of metastatic breast cancer, history of DJD, history of anxiety, nicotine dependence. The patient has thrombocytopenia, 5 units of platelet transfusion arranged. MEDICATIONS: 1. Ventolin. 2. Fentanyl 75 mcg every 72 hours. 3. Femara 2.5 mg daily. 4. Dilaudid 4 mg p.o. b.i.d. every 2 hours p.r.n. 5. Xanax 0.5 q.i.d. p.r.n. ALLERGIES: ntd FAMILY HISTORY: History of CVA, TIA, history of breast cancer. SOCIAL HISTORY: History of smoking currently. No alcohol intake. REVIEW OF SYSTEMS: ENT: No diminished vision. CARDIOVASCULAR: No angina or palpitations. GI: As mentioned. : As mentioned. NERVOUS SYSTEM: No numbness or weakness. ALLERGY/IMMUNOLOGY: None. MUSCULOSKELETAL: As mentioned. HEMATOLOGY: As mentioned. ENDOCRINE: No history of diabetes or hypothyroidism. CONSTITUTIONAL: As above. DERMATOLOGY: Negative. RHEUMATOLOGIC: As mentioned. PSYCHOLOGIC: As mentioned. PHYSICAL EXAMINATION: Alert and oriented x3, pulse 61, blood pressure 115/70, [id number], temperature is 97.9, pulse ox 100 percent room air. HEENT: Conjunctivae normal. Oral mucosa moist. NECK: No JVD. No lymph node enlargement. CARDIOVASCULAR: S1 and S2 muffled. LUNGS: Breath sounds diminished in the bases. Few scattered rhonchi. No crackles. ABDOMEN: Soft, nontender. No mass palpable. No guarding. No rigidity. No mass palpable. No ascites. Bowel sounds present. Biopsy site minimally tender. No significant swelling noted. EXTREMITIES: Legs no edema. No swelling. NERVOUS SYSTEM: Higher functions as mentioned earlier. Moves all 4 limbs. No focal motor or sensory deficits. LYMPHATICS: No lymph nodes palpable in the neck, axillae or groin. NERVOUS SYSTEM: Moves all 4 extremities. No focal deficits. LABS: WBC 2.2, hemoglobin 10.4, MCV 108.3, and platelets 70. Sodium 139, potassium 3.3, albumin is 2.9. ASSESSMENT: 1. Pain and relative hypotension after liver biopsy. 2. Metastatic breast cancer. 3. Pancytopenia related to malignancy. 4. Increased MCV. 5. Hypokalemia. 6. Hypoalbuminemia. 7. History of degenerative joint disease. 8. History of anxiety. 9. History of nicotine dependence, continued ongoing. RECOMMENDATIONS AND DISCUSSION: This 58-year-old woman who presented with multiple medical issues. We will monitor the patient closely. Resume the home medications. Closely follow with Hematology/Oncology. Otherwise, I would recommend repeat labs in the morning. Closely monitor. Guarded prognosis because of multiple complex medical issues. Further recommendations to follow. MMODL / IJN: [id number] / CLARISA
[2018-10-13] MEDS ORDERED: SODIUM CHLORIDE 0.9% 500 ML 500 ML IV ONE (07:19)
[2018-10-13] MEDS: HYDROmorphone 4 MG TABLET PO PRN ×2 (07:41→19:06)
[2018-10-13] MEDS: PANTOPRAZOLE 40 MG TABLET PO SCH (07:41)
[2018-10-13] MEDS: LETROZOLE 2.5 MG TAB PO SCH (09:00)
[2018-10-13 09:07] LABS: Anisocytosis Slight; HGB 9.3 gm/dL (11.4-16.0); Hypochromasia Slight; MCH 35.2 pg (25.0-35.0); MCHC 31.9 g/dL (31.0-37.0); MCV 110.3 fL (80.0-100.0); Macrocytosis Marked; Mean Platelet Volume 8.2; Platelet Count 100 k/uL (150-450); RBC 2.62 m/uL (3.80-5.40); RDW 17.3 % (11.5-15.5); WBC 1.9 k/uL (3.8-10.6)
[2018-10-13 09:28] LABS: Anion Gap 4 mmol/L; Blood Urea Nitrogen 10 mg/dL (7-17); Carbon Dioxide 27 mmol/L (22-30); Chloride 108 mmol/L (98-107); Glucose 82 mg/dL (74-99); Magnesium 1.7 mg/dL (1.6-2.3); Sodium 139 mmol/L (137-145)
--- NOTE | 2018-10-13 10:34 | P.PN ---
Subjective Progress Note Date: 10/13/18 Principal diagnosis: Progressive metastatic Breast Cancer - Concern for bleeding after biopsy Hemoglobin appears stable 9.3 today, Mild drop likely from dilution, no active bleeding noted. She denies any new or increased pain, she denies any dizziness, light-headed, headaches, or bleeding that she can see. Her daughters are at bedside. She stopped her Ibrance (Chemotherapy) approximately one week ago, therefore we are seeing a dropping in her blood counts. Mild and stable but while in hospital continuing to monitor. WBC 1.9, Neutrophils 0.96 today. She remains afebrile. Objective - Vital Signs Vital signs: Vital Signs Temp 97.4 F L 10/13/18 07:20 Pulse 64 10/13/18 08:54 Resp 16 10/13/18 07:20 BP 112/58 10/13/18 08:54 Pulse Ox 100 10/13/18 07:20 Intake & Output 10/12/18 10/13/18 10/13/18 18:59 06:59 18:59 Intake Total 290 1425 Balance 290 1425 Intake: Oral 290 1190 Blood Product 235 Platelet Pheresis Acda1 235 Unit [id number] Other: Voiding Method Toilet Toilet Toilet # Voids 2 - Exam Gen: Alert and oriented, NAD Head: NC/NT Neck - Supple, Trachea is midline Lungs: CTA Bilat, no increased effort Heart Rate: Normal and Tachy Abdomen: Soft, Mild tender Extremities: No rashes or Lesions Neuro: No Motor or sensory deficits noted - Labs CBC & Chem 7: 10/13/18 08:34 10/13/18 08:34 Labs: Abnormal Lab Results - Last 24 Hours (Table) 10/12/18 10/12/18 10/12/18 Range/Units 10:30 13:45 18:30 WBC 2.0 L 2.4 L (3.8-10.6) k/uL RBC 2.54 L 2.92 L (3.80-5.40) m/uL Hgb 9.6 L 10.4 L (11.4-16.0) gm/dL Hct 27.2 L 31.7 L (34.0-46.0) % MCV 107.0 H 108.3 H (80.0-100.0) fL MCH 37.6 H 35.4 H (25.0-35.0) pg RDW 17.5 H 16.9 H (11.5-15.5) % Plt Count 78 L 70 L 76 L (150-450) k/uL Neutrophils # (Manual) 1.20 L (1.3-7.7) k/uL Potassium (3.5-5.1) mmol/L Chloride (98-107) mmol/L Glucose (74-99) mg/dL Calcium (8.4-10.2) mg/dL Total Protein (6.3-8.2) g/dL Albumin (3.5-5.0) g/dL 10/12/18 10/13/18 10/13/18 Range/Units 18:30 08:34 08:34 WBC 1.9 L (3.8-10.6) k/uL RBC 2.62 L (3.80-5.40) m/uL Hgb 9.3 L (11.4-16.0) gm/dL Hct 29.0 L (34.0-46.0) % MCV 110.3 H (80.0-100.0) fL MCH 35.2 H (25.0-35.0) pg RDW 17.3 H (11.5-15.5) % Plt Count 100 L (150-450) k/uL Neutrophils # (Manual) (1.3-7.7) k/uL Potassium 3.3 L (3.5-5.1) mmol/L Chloride 108 H (98-107) mmol/L Glucose 115 H (74-99) mg/dL Calcium 8.0 L (8.4-10.2) mg/dL Total Protein 5.5 L (6.3-8.2) g/dL Albumin 2.9 L (3.5-5.0) g/dL Assessment and Plan Plan: Assessment and Recommendations: Metastatic Breast Cancer - - Originally Diagnosed 2014 - Invasive Lobular Carcinoma ER/OK Positive with Difffuse Bone Mets, pathological compression and Liver Lesions at time of diagnosis - Aromatase Inhibitor, Ibrance, and Xgeva controlled disease >2years with intermittent PRN Pallaiative radiation Treatments to spine T5, T9 - Now with appearance of progression in liver and status post Liver Biopsy today 10/12/18, with concern of post procedural bleeding Normocytic Anemia: - Monitor CBC, Hemoglobin on 10/10/18 = 11.2 - Iron Studies - Hemoglobin 9.3 today Leukopenia: Secondary to recent chemotherapy and Metastatic cancer - ANC 0.9 - She is on levaquin - Chest Xray was reviewed Thrombocytopenia: Secondary to malignancy recent Ibrance (chemo)and/progressive liver and possible bone marrow mets. - Check Coags and if fibrinogen decreased and/or INR/PT/PTT Prolonged in the picture of active bleeding will order FFP or Cryo Hypotension: Secondary to probable post procedural blood loss: - Monitor closely - IV Hydration Fluids - Q2-4 hour Vitals - Improved. Hypokalemia: - Resolved, supped 10/12/18 DISPO PLan: Per primary team. - SHe has appointment with Dr. Foy to review pathology results from yesterdays biopsy already scheduled. If patient asymptomatic and no signs of bleeding ok from Oncology hematology standpoint for discharge. Physician Attest: I have completed the full history and physical and developed the complete impression and plan, agree with above dictated as a scribe.
[2018-10-13 11:49] LABS: Iron Saturation 18.7 (12.00-45.00)
[2018-10-13 11:56] LABS: Basophils # (M) 0.02 k/uL (0-0.2); Eosinophils # (M) 0.02 k/uL (0-0.7); Lymphocytes # (M) 0.76 k/uL (1.0-4.8); Monocytes # (M) 0.15 k/uL (0-1.0); Neutrophils # (M) 0.95 k/uL (1.3-7.7); Neutrophils % (M) 50 %; Nucleated Red Blood Cells 0 /100 WBC (0-0); Total Cells Counted 100
[2018-10-13] MEDS: LEVOFLOXACIN 500 MG TAB PO SCH (17:31)
--- NOTE | 2018-10-13 17:40 | PN ---
PROGRESS NOTE DATE OF SERVICE: 10/13/2018 This 58-year-old woman who was admitted after pain and relative hypotension after surgery also had some hypotension this morning. IV fluid bolus has to be continued. No chest pain. No palpitations. The patient received platelet transfusions. PHYSICAL EXAMINATION: Alert and oriented x3. Pulse is 59, blood pressure 96/50, respiration 17, temperature 98.2, pulse ox 99% on room air. HEENT: Conjunctivae normal. NECK: No jugular venous distention. CARDIOVASCULAR SYSTEM: S1, S2 muffled. RESPIRATORY SYSTEM: Breath sounds diminished at the bases. No rhonchi. No crackles. ABDOMEN: Soft, non-tender. LEGS: No edema. No swelling. NERVOUS SYSTEM: No focal deficit. CHEST: Status post liver biopsy. LABS: WBC 1.9. Hemoglobin is 9.3, down from 10.4. Platelets 100. Other labs are normal. ASSESSMENT: 1. Pain and relative hypotension after liver biopsy. 2. Metastatic breast cancer. 3. Pancytopenia related to malignancy. 4. Anemia. 5. Increased mean corpuscular volume. 6. Hypokalemia. 7. Hypoalbuminemia. 8. History of degenerative joint disease. 9. History of anxiety. 10.History of nicotine dependence, continued, ongoing. RECOMMENDATIONS AND DISCUSSION: I recommend to continue current medications, continue with the monitoring, symptomatic treatment. The patient received platelet transfusion yesterday. Recommend to continue the current medications and hold off any blood pressure medications. IV fluids 75 mL/hour. Continue to monitor orthostatic vitals. Further recommendations to follow. MMODL / IJN: [id number] /
[2018-10-13] MEDS: SODIUM CHLORIDE 0.9% 1,000 ML IV SCH (19:07)
[2018-10-13 23:01] VITALS: RESP 18
[2018-10-14] MEDS: SODIUM CHLORIDE 0.9% 1,000 ML IV SCH (00:11)
[2018-10-14] MEDS: HYDROmorphone 4 MG TABLET PO PRN (05:29)
[2018-10-14 05:45] VITALS: BP 111/67; PULSE 67; TEMP 97.7
[2018-10-14] MEDS: PANTOPRAZOLE 40 MG TABLET PO SCH (08:38)
[2018-10-14] MEDS: LETROZOLE 2.5 MG TAB PO SCH (08:39)
[2018-10-14 09:44] LABS: Anisocytosis Slight; HGB 9.6 gm/dL (11.4-16.0); Hypochromasia Slight; MCHC 32.2 g/dL (31.0-37.0); MCV 111.9 fL (80.0-100.0); Macrocytosis Marked; Mean Platelet Volume 8.1; Platelet Count 108 k/uL (150-450); RBC 2.68 m/uL (3.80-5.40); RDW 17.6 % (11.5-15.5); WBC 2.1 k/uL (3.8-10.6)
[2018-10-14 10:10] LABS: Anion Gap 2 mmol/L; Blood Urea Nitrogen 8 mg/dL (7-17); Calcium 7.8 mg/dL (8.4-10.2); Carbon Dioxide 27 mmol/L (22-30); Chloride 109 mmol/L (98-107); Glucose 117 mg/dL (74-99); Potassium 4.1 mmol/L (3.5-5.1); Sodium 138 mmol/L (137-145)
[2018-10-14 12:04] LABS: Eosinophils # (M) 0.06 k/uL (0-0.7); Lymphocytes # (M) 0.65 k/uL (1.0-4.8); Monocytes # (M) 0.23 k/uL (0-1.0); Neutrophils # (M) 1.16 k/uL (1.3-7.7); Neutrophils % (M) 55 %; Nucleated Red Blood Cells 0 /100 WBC (0-0); Total Cells Counted 100
--- NOTE | 2018-10-14 12:28 | P.PN ---
Subjective Progress Note Date: 10/14/18 Principal diagnosis: Progressive metastatic Breast Cancer - Concern for bleeding after biopsy Hemoglobin remains stable, Hypotension appears to have resolved. No s/s bleeding and asymptomatic Objective - Vital Signs Vital signs: Vital Signs Temp 97.7 F 10/14/18 05:44 Pulse 67 10/14/18 08:00 Resp 18 10/14/18 08:00 BP 111/67 10/14/18 05:44 Pulse Ox 99 10/14/18 05:44 Intake & Output 10/13/18 10/14/18 10/14/18 18:59 06:59 18:59 Intake Total 1240 720 Balance 1240 720 Intake: Intake, IV Titration 640 Amount Sodium Chloride 0.9% 1, 640 000 ml @ 75 mls/hr IV . [id number] Rx#:[id number] Oral 600 720 Other: Voiding Method Toilet Toilet Toilet # Voids 2 - Exam Gen: Alert and oriented, NAD Head: NC/NT Neck - Supple, Trachea is midline Lungs: CTA Bilat, no increased effort Heart Rate: Normal and Tachy Abdomen: Soft, Mild tender Extremities: No rashes or Lesions Neuro: No Motor or sensory deficits noted - Labs CBC & Chem 7: 10/14/18 08:43 10/14/18 08:43 Labs: Abnormal Lab Results - Last 24 Hours (Table) 10/12/18 10/14/18 10/14/18 Range/Units 18:30 08:43 08:43 WBC 2.1 L (3.8-10.6) k/uL RBC 2.68 L (3.80-5.40) m/uL Hgb 9.6 L (11.4-16.0) gm/dL Hct 30.0 L (34.0-46.0) % MCV 111.9 H (80.0-100.0) fL MCH 36.0 H (25.0-35.0) pg RDW 17.6 H (11.5-15.5) % Plt Count 108 L (150-450) k/uL Neutrophils # (Manual) 1.16 L (1.3-7.7) k/uL Lymphocytes # (Manual) 0.65 L (1.0-4.8) k/uL Chloride 109 H (98-107) mmol/L Glucose 117 H (74-99) mg/dL Calcium 7.8 L (8.4-10.2) mg/dL Ferritin 521.8 H (10.0-291.0) ng/mL Assessment and Plan Plan: Assessment and Recommendations: Metastatic Breast Cancer - - Originally Diagnosed 2014 - Invasive Lobular Carcinoma ER/VA Positive with Difffuse Bone Mets, pathological compression and Liver Lesions at time of diagnosis - Aromatase Inhibitor, Ibrance, and Xgeva controlled disease >2years with intermittent PRN Pallaiative radiation Treatments to spine T5, T9 - Now with appearance of progression in liver and status post Liver Biopsy today 10/12/18, with concern of post procedural bleeding Normocytic Anemia: - Monitor CBC, Hemoglobin on 10/10/18 = 11.2 - Iron Studies - Hemoglobin 9.6 today Leukopenia: Secondary to recent chemotherapy and Metastatic cancer - Improved - She is on levaquin - Chest Xray was reviewed Thrombocytopenia: Secondary to malignancy recent Ibrance (chemo)and/progressive liver and possible bone marrow mets. - Check Coags and if fibrinogen decreased and/or INR/PT/PTT Prolonged in the picture of active bleeding will order FFP or Cryo Hypotension: Secondary to probable post procedural blood loss: - Improving/Stable - Asymptomatic - IV Hydration Fluids - Improved. Hypokalemia: - Resolved, supped 10/12/18 DISPO PLan: Per primary team. - SHe has appointment with Dr. Foy to review pathology results from yesterdays biopsy already scheduled. If patient asymptomatic and no signs of bleeding ok from Oncology hematology standpoint for discharge. Physician Attest: I have completed the full history and physical and developed the complete impression and plan, agree with above dictated as a scribe.
[2018-10-14] MEDS: LEVOFLOXACIN 500 MG TAB PO SCH (12:42)
--- NOTE | 2018-10-14 23:11 | DS ---
DISCHARGE SUMMARY DATE OF SERVICE: 10/14/2018 FINAL DIAGNOSES: 1. Pain and relative hypotension after liver biopsy, improved. 2. Metastatic breast cancer. 3. Pancytopenia related to malignancy. 4. Anemia. 5. Increased mean corpuscular volume. 6. Hypokalemia. 7. Hypoalbuminemia. 8. History of degenerative joint disease. 9. History of anxiety. 10.History of nicotine dependence. 11.Thrombocytopenia. DISCHARGE DISPOSITION: The patient will be discharged in stable condition with guarded prognosis. HISTORY OF PRESENT ILLNESS: This 58-year-old woman with a past medical history of multiple medical problems was admitted after pain and relative hypotension after liver biopsy. Patient was monitored closely. Patient had platelet transfusion. Platelets improved. Pain also improved. Blood pressure stabilized. The platelets are 108 at this time. Patient improved significantly. Patient was seen by Hematology/Oncology. On exam, vitals are stable. CARDIOVASCULAR SYSTEM: S1, S2 muffled. ABDOMEN: Soft. NERVOUS SYSTEM: No focal deficit. DISCHARGE ADVICE AND MEDICATIONS: 1. Discharge diet is cardiac. 2. Activity limited until followup. 3. Follow up with Dr. Foy in 2 to 3 days. 4. Dilaudid 4 mg q.2 p.r.n. 5. Fentanyl patch 75 mcg q.72 hours. 6. Femara 2.5 mg daily. 7. Xanax 0.25 q.8 p.r.n. 8. Levaquin 500 mg daily for 3 days. MMODL / IJN: [id number] /
== END 2018-10-14 13:20 | disposition home or self-care (01) ==
LOC: RADPROMAIN 10:01 → 3NMEDONC 15:05
PROVIDERS: ADMIT Hospitalist; ATTEND Hospitalist
DX: I95.81 Postprocedural hypotension (principal); G89.18 Other acute postprocedural pain; M84.58XA Pathological fracture in neoplastic disease, other specified site, initial encounter for fracture; C78.7 Secondary malignant neoplasm of liver and intrahepatic bile duct; C50.912 Malignant neoplasm of unspecified site of left female breast; C79.51 Secondary malignant neoplasm of bone; F17.220 Nicotine dependence, chewing tobacco, uncomplicated; Z17.0 Estrogen receptor positive status [ER+]; D61.818 Other pancytopenia; E87.6 Hypokalemia; E88.09 Other disorders of plasma-protein metabolism, not elsewhere classified; Z92.3 Personal history of irradiation; Z88.5 Allergy status to narcotic agent; Z79.811 Long term (current) use of aromatase inhibitors; Z82.49 Family history of ischemic heart disease and other diseases of the circulatory system
CPT/HCPCS: 96361; 96374; 86900; 86901; 88305; 88173; 80053; 80048 ×2; 82728; 83540; 83550; 83735 ×2; 85025 ×3; 85027; 85384; 85049; 85610; 85730; 86850; 88342; 88307; 88341; 36415; 71045; 76705; 47000; 77012; 10010; G0378 ×4; P9035; J1170

== ENCOUNTER → 2018-12-04 | Outpatient (CLI) | payer MEDICARE ==
[2018-12-04 15:49] LABS: ALT 40 U/L (9-52); AST 77 U/L (14-36); Albumin 3.6 g/dL (3.5-5.0); Alkaline Phosphatase 65 U/L (38-126); Anion Gap 4 mmol/L; Blood Urea Nitrogen 14 mg/dL (7-17); Calcium 8.3 mg/dL (8.4-10.2); Carbon Dioxide 29 mmol/L (22-30); Chloride 106 mmol/L (98-107); Glucose 111 mg/dL (74-99); Sodium 139 mmol/L (137-145); Total Bilirubin 0.4 mg/dL (0.2-1.3); Total Protein 6.4 g/dL (6.3-8.2)
--- NOTE | 2018-12-04 16:28 | CT ---
EXAMINATION TYPE: CT angio chest DATE OF EXAM: 12/04/2018 4:16 PM COMPARISON: HISTORY: CT DLP: mGycm Automated exposure control for dose reduction was used. CONTRAST: CTA scan of the thorax is performed , patient injected with mL of , pulmonary embolism protocol. . The contrast was Isovue 100 mL. There are 3-D post processed images. FINDINGS: There is coarse interstitial density in the lungs consistent with pulmonary fibrosis. There is no domenica dence of a pulmonary mass. Thoracic aorta is atheromatous. There is no mediastinal adenopathy. There is some thickening of the mid thoracic esophagus. There are no hilar masses. There is normal contrast opacification of the pulmonary arteries. I see no filling defect. There is diffuse lytic and blastic changes in the bony thorax consistent with metastatic disease. The re is multiple variable sized liver masses consistent with metastatic disease. There are nodular dens ities involving left adrenal gland suspicious for metastatic disease. IMPRESSION: NO EVIDENCE OF PULMONARY EMBOLISM. EXTENSIVE OSSEOUS METASTATIC DISEASE UNCHANGED. EXTENSIVE METASTATIC LIVER DISEASE UNCHANGED. THERE IS SOME THICKENING OF THE MID THORACIC ESOPHAGUS THAT IS A CHANGE COMPARED TO OLD EXAM. THIS CO ULD RELATE TO MASS OR RETAINED FOOD IN THE ESOPHAGUS.
== END | disposition home or self-care (01) ==
LOC: RADCTMAIN 15:22
PROVIDERS: ATTEND Internal Medicine Hematology & Oncology
DX: C79.51 Secondary malignant neoplasm of bone (principal); C78.7 Secondary malignant neoplasm of liver and intrahepatic bile duct; C50.312 Malignant neoplasm of lower-inner quadrant of left female breast; R06.02 Shortness of breath
CPT/HCPCS: 80053; 71275; 36415; Q9967

== ENCOUNTER → 2019-01-13 | Outpatient (CLI) | payer MEDICARE ==
--- NOTE | 2019-01-13 14:30 | MR ---
EXAMINATION TYPE: MR brain wo/w con DATE OF EXAM: 01/13/2019 COMPARISON: CT brain March 24, 2015 HISTORY: Breast Ca, confusion TECHNIQUE: Multiplanar, multisequence images of the brain and brainstem is performed without and with IV contras t, utilizing 6.5 mL intravenous Gadavist . FINDINGS: Diffusion weighted images demonstrate no evidence of a recent infarct or other diffusion ab normality. There is no worrisome extra-axial fluid collection. Mild ventricular and sulcal prominenc e is present. Scattered foci of T2 hyperintensity are seen throughout the superficial, deep, and gerry ventricular white matter. Approximately 30-40 scattered lesions are felt present. Asymmetry to the ve ntricles with left-sided prominence is redemonstrated. Midline structures demonstrate normal morphology. The craniocervical junction appears within normal limits. Post contrast images demonstrate no abnormal enhancement. The dural venous sinuses appear pa tent. Mild mucosal thickening inferior aspect bilateral maxillary sinuses is present. Globes are inta ct bilaterally. IMPRESSION: Mild diffuse age-related cerebral atrophy with moderate chronic small vessel ischemic river nge. No suspicious enhancing lesions to suggest metastatic disease.
== END | disposition home or self-care (01) ==
LOC: RADMRIMAIN 13:21
PROVIDERS: ATTEND Internal Medicine Hematology & Oncology
DX: C50.312 Malignant neoplasm of lower-inner quadrant of left female breast (principal); G31.1 Senile degeneration of brain, not elsewhere classified; I67.82 Cerebral ischemia
CPT/HCPCS: 70553; A9585

== ENCOUNTER 2019-02-01 18:41 | Emergency (ER) | payer MEDICARE ==
[2019-02-01] MEDS ORDERED: SODIUM CHLORIDE 0.9% 500 ML 500 ML IV STA (18:58)
[2019-02-01] MEDS ORDERED: methylPREDNISolone SOD SUCCI 125 MG/2 ML VIAL IV STA (18:59)
[2019-02-01] MEDS ORDERED: IPRATROPIUM-ALBUTEROL 3 ML NEB INHALATION STA (18:59)
--- NOTE | 2019-02-01 19:01 | ED ---
General Adult HPI - General Chief complaint: Shortness of Breath Stated complaint: SOB/cancer pt Time Seen by Provider: 02/01/19 18:52 Source: patient, RN notes reviewed, old records reviewed Mode of arrival: wheelchair Limitations: no limitations - History of Present Illness Initial comments: 58-year-old female patient active smoker, past medical history significant for active breast cancer, currently taking oral chemotherapy agents on daily basis parents ED with approximately 3 weeks of shortness of breath and productive cough. She reports any shortness of breath was worse today. Denies any chest pain. Denies any other symptoms. Denies any fevers chills nausea vomiting diarrhea, denies other complaints. Systemic: Pt denies fatigue, fever/chills, rash. Pt denies weakness, night sweats, weight loss. Neuro: Pt denies headache, visual disturbances, syncope or pre-syncope. HEENT: Pt denies ocular discharge or irritation, otalgia, rhinorrhea, pharyngitis or notable lymphadenopathy. Cardiopulmonary: Pt denies chest pain, heart palpitations, dyspnea on exertion. Abdominal/GI: Pt denies abdominal pain, n/v/d. : Pt denies dysuria, burning w/ urination, frequency/urgency. Denies new onset urinary or bowel incontinence. MSK: Pt denies myalgia, loss of strength or function in extremities. Neuro: Pt denies new onset weakness, paresthesias. - Related Data Home Medications Medication Instructions Recorded Confirmed ALPRAZolam [Xanax] 0.25 mg PO Q8H PRN 06/24/18 02/01/19 HYDROmorphone [Dilaudid] 4 mg PO Q4H PRN 06/24/18 02/01/19 fentaNYL 75MCG/HR PATCH [Duragesic 1 patch TRANSDERM Q72H 10/07/18 02/01/19 75MCG/HR] Faslodex 250/Ml 500 mg IM Q30D 02/01/19 02/01/19 Xgeva 1 dose SQ Q30D 02/01/19 02/01/19 Previous Rx's Medication Instructions Recorded Albuterol Inhaler [Ventolin Hfa 1 - 2 puff INHALATION Q4-6H PRN #1 02/01/19 Inhaler] inhaler Albuterol Nebulized [Ventolin 2.5 mg INHALATION Q4H PRN 10 Days 02/01/19 Nebulized] nebu predniSONE 50 mg PO DAILY #4 tab 02/01/19 Allergies Allergy/AdvReac Type Severity Reaction Status Date / Time meperidine HCl [From Demerol] Allergy Rash/Hives Verified 02/01/19 19:12 Review of Systems ROS Statement: Those systems with pertinent positive or pertinent negative responses have been documented in the HPI. ROS Other: All systems not noted in ROS Statement are negative. Past Medical History Past Medical History: Cancer Additional Past Medical History / Comment(s): metastatic breast cancer originally dx 2014 -last dose chemo oral dose 06-22-18-pt states "was told by Dr Foy on 06-23-18 to have liver bx done to change chemo and was told the oral chemo no longer working has new tumor growth to liver"-radiation October 2017 & Apr 2015,bone mets-radiation to spine , started on oral chemo 07/01/18 and then stopped 10/06/18 History of Any Multi-Drug Resistant Organisms: None Reported Past Surgical History: Orthopedic Surgery Additional Past Surgical History / Comment(s): LEFT KNEE SURGERY 2004 Past Anesthesia/Blood Transfusion Reactions: No Reported Reaction Past Psychological History: Anxiety Smoking Status: Current every day smoker Past Alcohol Use History: None Reported Past Drug Use History: None Reported - Past Family History Father History Unknown: Yes Family Medical History: Coronary Artery Disease (CAD), CVA/TIA Mother History Unknown: Yes Family Medical History: Cancer Additional Family Medical History / Comment(s): breast General Exam - General Exam Comments Initial Comments: Constitutional: NAD, AOX3, Pt has pleasant affect. HEENT: NC/AT, trachea midline, neck supple, no lymphadenopathy. Posterior pharynx non erythematous, without exudates. External ears appear normal, without discharge. Mucous membranes moist. Eyes PERRLA, EOM intact. There is no scleral icterus. No pallor noted. Cardiopulmonary: RRR, no murmurs, rubs or gallops, no JVD noted. Lungs CTAB in anterior and posterior luna. No peripheral edema. Abdominal exam: Abdomen soft and non-distended. Abdomen non-tender to palpation in all 4 quadrants. Bowel sounds active in LLQ. No hepatosplenomegaly. No ecchymosis Neuro: CN II-XII grossly intact. No nuchal rigidity. No raccon eyes, no godinez sign, no hemotympanum. No cervical spinal tenderness. MSK: No posterior calf tenderness bilaterally, homans sign negative bilaterally. Posterior tibialis and radial pulse +2 bilaterally. Sensation intact in upper and lower extremities. Full active ROM in upper and lower extremities, 5/5 stregnth. Limitations: no limitations Course Vital Signs 02/01/19 02/01/19 02/01/19 18:45 19:15 19:31 Temperature 97.5 F L Pulse Rate 89 82 82 Respiratory 18 Rate Blood Pressure 149/86 O2 Sat by Pulse 100 Oximetry 02/01/19 02/01/19 02/01/19 19:52 20:05 21:22 Temperature 97.9 F Pulse Rate 83 86 Respiratory 20 18 18 Rate Blood Pressure 135/72 123/69 O2 Sat by Pulse 96 95 Oximetry 02/01/19 02/01/19 22:03 23:32 Temperature 98 F 98.1 F Pulse Rate 86 78 Respiratory 18 18 Rate Blood Pressure 120/78 121/72 O2 Sat by Pulse 94 L 96 Oximetry Medical Decision Making - Medical Decision Making 58-year-old female patient active smoker, past medical history significant for active breast cancer, currently taking oral chemotherapy agents on daily basis parents ED with approximately 3 weeks of shortness of breath and productive cough. She reports any shortness of breath was worse today. Denies any chest pain. Denies any other symptoms. Denies any fevers chills nausea vomiting diarrhea, denies other complaints. Patient vital signs stable, afebrile. Physical exam demonstrate acute pathology. Laboratory investigations were overall noncompressive with exception of d-dimer mildly elevated. EKG not concerning for acute ischemia. CT chest and it displayed no PE. No metastatic disease which is previously known. Patient discharge, will follow up PCP and on cologist. Patient diagnosed with acute bronchitis. Case discussed with Dr. Daniels and Dr. Staples. Return precautions. - Lab Data Result diagrams: 02/01/19 19:25 02/01/19 19:25 Lab Results 02/01/19 02/01/19 02/01/19 Range/Units 19:25 19:25 19:25 WBC 5.5 (3.8-10.6) k/uL RBC 4.33 (3.80-5.40) m/uL Hgb 11.3 L (11.4-16.0) gm/dL Hct 36.5 (34.0-46.0) % MCV 84.2 (80.0-100.0) fL MCH 26.0 (25.0-35.0) pg MCHC 30.9 L (31.0-37.0) g/dL RDW 16.0 H (11.5-15.5) % Plt Count 132 L (150-450) k/uL Neutrophils % 72 % Lymphocytes % 13 % Monocytes % 5 % Eosinophils % 7 % Basophils % 0 % Neutrophils # 4.0 (1.3-7.7) k/uL Lymphocytes # 0.7 L (1.0-4.8) k/uL Monocytes # 0.3 (0-1.0) k/uL Eosinophils # 0.4 (0-0.7) k/uL Basophils # 0.0 (0-0.2) k/uL Anisocytosis Slight PT (9.0-12.0) sec INR (<1.2) APTT (22.0-30.0) sec D-Dimer (<0.60) mg/L FEU Sodium 138 (137-145) mmol/L Potassium 3.5 (3.5-5.1) mmol/L Chloride 107 (98-107) mmol/L Carbon Dioxide 26 (22-30) mmol/L Anion Gap 5 mmol/L BUN 13 (7-17) mg/dL Creatinine 0.53 (0.52-1.04) mg/dL Est GFR (CKD-EPI)AfAm >90 (>60 ml/min/1.73 sqM) Est GFR (CKD-EPI)NonAf >90 (>60 ml/min/1.73 sqM) Glucose 127 H (74-99) mg/dL Calcium 8.6 (8.4-10.2) mg/dL Magnesium 2.1 (1.6-2.3) mg/dL Total Bilirubin 0.8 (0.2-1.3) mg/dL AST 67 H (14-36) U/L ALT 22 (9-52) U/L Alkaline Phosphatase 65 (38-126) U/L Troponin I (0.000-0.034) ng/mL NT-Pro-B Natriuret Pep 835 pg/mL Total Protein 6.3 (6.3-8.2) g/dL Albumin 3.5 (3.5-5.0) g/dL 02/01/19 02/01/19 02/01/19 Range/Units 19:25 19:25 19:25 WBC (3.8-10.6) k/uL RBC (3.80-5.40) m/uL Hgb (11.4-16.0) gm/dL Hct (34.0-46.0) % MCV (80.0-100.0) fL MCH (25.0-35.0) pg MCHC (31.0-37.0) g/dL RDW (11.5-15.5) % Plt Count (150-450) k/uL Neutrophils % % Lymphocytes % % Monocytes % % Eosinophils % % Basophils % % Neutrophils # (1.3-7.7) k/uL Lymphocytes # (1.0-4.8) k/uL Monocytes # (0-1.0) k/uL Eosinophils # (0-0.7) k/uL Basophils # (0-0.2) k/uL Anisocytosis PT 10.3 (9.0-12.0) sec INR 1.0 (<1.2) APTT 26.1 (22.0-30.0) sec D-Dimer 1.33 H (<0.60) mg/L FEU Sodium (137-145) mmol/L Potassium (3.5-5.1) mmol/L Chloride (98-107) mmol/L Carbon Dioxide (22-30) mmol/L Anion Gap mmol/L BUN (7-17) mg/dL Creatinine (0.52-1.04) mg/dL Est GFR (CKD-EPI)AfAm (>60 ml/min/1.73 sqM) Est GFR (CKD-EPI)NonAf (>60 ml/min/1.73 sqM) Glucose (74-99) mg/dL Calcium (8.4-10.2) mg/dL Magnesium (1.6-2.3) mg/dL Total Bilirubin (0.2-1.3) mg/dL AST (14-36) U/L ALT (9-52) U/L Alkaline Phosphatase (38-126) U/L Troponin I <0.012 (0.000-0.034) ng/mL NT-Pro-B Natriuret Pep pg/mL Total Protein (6.3-8.2) g/dL Albumin (3.5-5.0) g/dL Disposition Clinical Impression: Bronchitis Disposition: HOME SELF-CARE Condition: Stable Instructions (If sedation given, give patient instructions): Acute Bronchitis (ED) Additional Instructions: Patient to adhere to previously discussed treatment plan and will take medication(s) as directed. Patient to follow up with PCP in 1-2 days. Patient to return to ED if symptoms do not improve. Take Medication as directed. Follow-up with primary care provider and oncologist tomorrow. Return to ED if condition worsens. Prescriptions: predniSONE 50 mg PO DAILY #4 tab Albuterol Inhaler [Ventolin Hfa Inhaler] 1 - 2 puff INHALATION Q4-6H PRN #1 inhaler PRN Reason: Cough Albuterol Nebulized [Ventolin Nebulized] 2.5 mg INHALATION Q4H PRN 10 Days nebu PRN Reason: Cough Is patient prescribed a controlled substance at d/c from ED?: No Referrals: Real Foy MD [Primary Care Provider] - 1-2 days
[2019-02-01 19:38] LABS: Anisocytosis Slight; Basophils % (A) 0 %; Eosinophils # (A) 0.4 k/uL (0-0.7); Eosinophils % (A) 7 %; HCT 36.5 % (34.0-46.0); HGB 11.3 gm/dL (11.4-16.0); Lymphocytes # (A) 0.7 k/uL (1.0-4.8); Lymphocytes % (A) 13 %; MCHC 30.9 g/dL (31.0-37.0); MCV 84.2 fL (80.0-100.0); Mean Platelet Volume 7.2; Monocytes # (A) 0.3 k/uL (0-1.0); Monocytes % (A) 5 %; Neutrophils % (A) 72 %; Platelet Count 132 k/uL (150-450); RBC 4.33 m/uL (3.80-5.40); WBC 5.5 k/uL (3.8-10.6)
[2019-02-01 19:51] LABS: ALT 22 U/L (9-52); AST 67 U/L (14-36); African American GFR (CKD) >90 (>60 ml/min/1.73 sqM); Albumin 3.5 g/dL (3.5-5.0); Alkaline Phosphatase 65 U/L (38-126); Anion Gap 5 mmol/L; Blood Urea Nitrogen 13 mg/dL (7-17); Calcium 8.6 mg/dL (8.4-10.2); Carbon Dioxide 26 mmol/L (22-30); Chloride 107 mmol/L (98-107); Glucose 127 mg/dL (74-99); Magnesium 2.1 mg/dL (1.6-2.3); Non-African American GFR(CKD) >90 (>60 ml/min/1.73 sqM); Partial Thromboplastin Time 26.1 sec (22.0-30.0); Potassium 3.5 mmol/L (3.5-5.1); Prothrombin Time 10.3 sec (9.0-12.0); Sodium 138 mmol/L (137-145); Total Bilirubin 0.8 mg/dL (0.2-1.3); Total Protein 6.3 g/dL (6.3-8.2)
--- NOTE | 2019-02-01 19:56 | XR ---
EXAMINATION TYPE: XR chest 2V DATE OF EXAM: 02/01/2019 COMPARISON: NONE HISTORY: Short of breath TECHNIQUE: Frontal and lateral views of the chest are obtained. FINDINGS: Heart and mediastinum are normal. Lungs are clear. Costophrenic angles are clear. There ar e chest leads. There are few bilateral old healed rib fractures. There is osteopenia and anterior wed ging of several thoracic vertebra. IMPRESSION: No active cardiopulmonary disease.
[2019-02-01 20:08] VITALS: RESP 18
[2019-02-01] MEDS ORDERED: LORazepam 2 MG/ML INJ IV STA (21:35)
--- NOTE | 2019-02-01 22:41 | CT ---
EXAM: CT Angiography Chest With Intravenous Contrast CLINICAL HISTORY: Pain TECHNIQUE: Axial computed tomographic angiography images of the chest with intravenous contrast using pulmonary embolism protocol. This CT exam was performed using one or more of the following dose reduction techniques: automated exposure control, adjustment of the mA and/or kV according to patient size, and/or use of iterative reconstruction technique. MIP reconstructed images were created and reviewed. COMPARISON: No relevant prior studies available. FINDINGS: Pulmonary arteries: No pulmonary embolus. Aorta: No acute findings. No thoracic aortic aneurysm. Lungs: Centrilobular emphysema with smooth interlobular septal thickening and prominence the bronchovascular bundles. No mass. Pleural space: Trace pleural effusions. No pneumothorax. Heart: Unremarkable. No cardiomegaly. No significant pericardial effusion. No evidence of RV dysfunction. Thyroid: 11 mm hypodense lesion within the right thyroid gland. Recommend nonemergent sonogram for further characterization. Bones/joints: Extensive osseous metastatic disease. Probable remote compression deformities of T4, T5, T6 and T8, likely remote. No dislocation. Soft tissues: Unremarkable. Lymph nodes: Unremarkable. No enlarged lymph nodes. Liver: Numerous enhancing masses seen throughout the liver suggesting metastatic disease. Adrenals: Left adrenal gland nodule measuring up to 2.5 cm concerning for metastatic disease. Intraperitoneal space: Trace ascites. IMPRESSION: 1. No pulmonary embolus. 2. Centrilobular emphysema with smooth interlobular septal thickening and prominence the bronchovascular bundles. Findings are concerning for early pulmonary vascular congestion versus an infectious process. 3. Trace pleural effusions. 4. Numerous enhancing masses seen throughout the liver suggesting metastatic disease. Left adrenal gland nodule, likely metastatic disease. 5. Extensive osseous metastatic disease. Probable remote compression deformities of T4, T5, T6 and T8, likely remote.
[2019-02-01 23:35] VITALS: BP 121/72; PULSE 78; TEMP 98.1
== END 2019-02-01 23:18 | disposition home or self-care (01) ==
LOC: EC 18:41
DX: J20.9 Acute bronchitis, unspecified (principal); R79.1 Abnormal coagulation profile; F17.200 Nicotine dependence, unspecified, uncomplicated; Z88.5 Allergy status to narcotic agent; Z79.891 Long term (current) use of opiate analgesic; Z85.3 Personal history of malignant neoplasm of breast; Z85.830 Personal history of malignant neoplasm of bone; Z92.21 Personal history of antineoplastic chemotherapy; Z92.22 Personal history of monoclonal drug therapy; Z92.3 Personal history of irradiation; Z82.49 Family history of ischemic heart disease and other diseases of the circulatory system
CPT/HCPCS: 36415; 94640; 93005; 85379; 83880; 80053; 83735; 84484; 85025; 85610; 85730; 71046; 71275; 99285; 96374; 96375; J2060; J2930; Q9967

== ENCOUNTER → 2019-02-12 | Outpatient (CLI) | payer MEDICARE ==
[2019-02-12 14:54] LABS: African American GFR (CKD) >90 (>60 ml/min/1.73 sqM); Blood Urea Nitrogen 11 mg/dL (7-17)
--- NOTE | 2019-02-12 15:33 | CT ---
EXAMINATION TYPE: CT abdomen pelvis w con DATE OF EXAM: 02/12/2019 HISTORY: Metastatic breast cancer to liver progress study. CT DLP: 540.6mGycm Automated Exposure Control for Dose Reduction was Utilized. CONTRAST: CT scan of the abdomen and pelvis is performed with oral and with IV Contrast, patient injected with 100 mL of Isovue 300. COMPARISON: CT chest abdomen and pelvis October 01, 2018 and multiple older CTs. FINDINGS: LUNG BASES: New small right pleural effusion with associated compressive atelectasis. Redemonstration of multiple hepatic metastatic lesions definitively increased in size and number from June 18, 018 CT, likely some interval progression from more recent October 01, 2018 CT. Reference lesion posteri or segment right hepatic lobe measures 3.2 cm long axis axial image 19 versus 2.5 cm prior study imag e 51. Reference lesion anteriorly axial image 15 measures 3.4 cm long axis versus 3.1 cm prior study image 46. Some surrounding ascites inferiorly is now present. Some new lesions are seen. LIVER/GB: No significant abnormality is appreciated. PANCREAS: Mild generalized atrophy of the head and body. SPLEEN: Mild ascites along the left lateral margin now present. ADRENALS: Persistent slightly lobulated left adrenal mass, superior portion measures 2.4 x 2.2 cm federica ge 15 and inferior portion measures 2.3 x 1.8 cm axial image 19. No significant change from most rece nt CT. Smaller right adrenal mass axial image 13 not significantly changed from most recent CT. KIDNEYS: Anterior positioning to right kidney redemonstrated.. BOWEL: No significant abnormality is seen. UTERUS/ADNEXA: Developing pelvic fluid. Suspicious hypodense lesions in the lateral aspect of the vianney ateral pelvis axial image 64 show increased prominence from older studies LYMPH NODES: Stable suspicious left para-aortic lymph nodes axial image 25. No new adenopathy. OSSEOUS STRUCTURES: Innumerable sclerotic foci throughout the bones redemonstrated including spine an d pelvis proximal femurs bilaterally as well as visualized ribs. OTHER: No significant additional abnormality is seen. IMPRESSION: Interval neoplastic progression with worsening hepatic metastatic disease and developing abdominal/pelvic ascites. Fairly stable innumerable diffuse osseous metastatic lesions and adrenal me tastatic lesions from most recent CT. Stable left retroperitoneal nonspecific lymph nodes. More promi nent suspicious pelvic lesions noted may warrant further workup.
== END | disposition home or self-care (01) ==
LOC: RADCTMAIN 13:29
PROVIDERS: ATTEND Internal Medicine Hematology & Oncology
DX: C78.7 Secondary malignant neoplasm of liver and intrahepatic bile duct (principal); C79.51 Secondary malignant neoplasm of bone; C79.70 Secondary malignant neoplasm of unspecified adrenal gland; C50.312 Malignant neoplasm of lower-inner quadrant of left female breast
CPT/HCPCS: 82565; 84520; 74177; 36415; Q9967

== ENCOUNTER 2019-03-07 19:36 | Inpatient (IN) | payer MEDICARE ==
[2019-03-07] MEDS ORDERED: SODIUM CHLORIDE 0.9% 1,000 ML IV STA ×2 (19:55)
[2019-03-07] MEDS ORDERED: SODIUM CHLORIDE 0.9% 500 ML 500 ML IV STA (19:55)
[2019-03-07] MEDS ORDERED: HYDROmorphone 1 MG/ML 1 ML SYRINGE IVP STA (19:56)
--- NOTE | 2019-03-07 19:59 | ED ---
Chest Pain HPI - General Chief Complaint: Chest Pain Stated Complaint: HIEN Time Seen by Provider: 03/07/19 19:46 Source: patient, family, RN notes reviewed Mode of arrival: wheelchair Limitations: no limitations - History of Present Illness Initial Comments: This is a 5-year-old female history of metastatic breast cancer history of pancreatitis she has been on chemo therapy and radiation therapy in the past who presents with complaints of 1-2 days of decreased oral intake secondary to nausea vomiting every time she tries to ingest food or fluids. She also has had some constipation she complains of chest pain is 9/10 severity sharp and dull in nature which she states makes it hard for her breathing. No overt fevers chills or sweats no other modifying factors at this time. She states it feels similar to her presentation she had January of this year. MD Complaint: chest pain, other - Related Data Home Medications Medication Instructions Recorded Confirmed HYDROmorphone [Dilaudid] 4 mg PO Q4H PRN 06/24/18 03/07/19 fentaNYL 75MCG/HR PATCH [Duragesic 1 patch TRANSDERM Q72H 10/07/18 03/07/19 75MCG/HR] ALPRAZolam [Xanax] 0.5 mg PO Q8H PRN 03/07/19 03/07/19 Allergies Allergy/AdvReac Type Severity Reaction Status Date / Time meperidine HCl [From Demerol] Allergy Rash/Hives Verified 03/07/19 20:01 Review of Systems ROS Statement: Those systems with pertinent positive or pertinent negative responses have been documented in the HPI. ROS Other: All systems not noted in ROS Statement are negative. EKG Findings - EKG Results: EKG: interpreted by SHARA, sinus rhythm (Sinus tachycardia 108. Interval 128 QRS duration 80 QT since QTC 356/[address] configuration) Past Medical History Past Medical History: Cancer Additional Past Medical History / Comment(s): metastatic breast cancer originally dx 2014 -last dose chemo oral dose 06-22-18-pt states "was told by Dr Foy on 06-23-18 to have liver bx done to change chemo and was told the oral chemo no longer working has new tumor growth to liver"-radiation October 2017 & Apr 2015,bone mets-radiation to spine , started on oral chemo 07/01/18 and then stopped 10/06/18 History of Any Multi-Drug Resistant Organisms: None Reported Past Surgical History: Orthopedic Surgery Additional Past Surgical History / Comment(s): LEFT KNEE SURGERY 2004 Past Anesthesia/Blood Transfusion Reactions: No Reported Reaction Past Psychological History: Anxiety Smoking Status: Current every day smoker Past Alcohol Use History: None Reported Past Drug Use History: None Reported - Past Family History Father History Unknown: Yes Family Medical History: Coronary Artery Disease (CAD), CVA/TIA Mother History Unknown: Yes Family Medical History: Cancer Additional Family Medical History / Comment(s): breast General Exam - General Exam Comments Initial Comments: This is a well-developed asthenic appearing female who is awake alert oriented 3 Limitations: no limitations General appearance: alert, in distress Head exam: Present: atraumatic, normocephalic, normal inspection Eye exam: Present: normal appearance, PERRL, EOMI. Absent: scleral icterus, conjunctival injection, periorbital swelling ENT exam: Present: mucous membranes dry Neck exam: Present: normal inspection. Absent: tenderness, meningismus, lymph adenopathy Respiratory exam: Present: chest wall tenderness, decreased breath sounds, other (Well-healed surgical scar on the left medial breast). Absent: respiratory distress, wheezes, rales, rhonchi, stridor Cardiovascular Exam: Present: normal rhythm, tachycardia, normal heart sounds. Absent: systolic murmur, diastolic murmur, rubs, gallop, clicks GI/Abdominal exam: Present: soft, normal bowel sounds. Absent: distended, tenderness, guarding, rebound, rigid Extremities exam: Present: normal inspection, full ROM, normal capillary refill. Absent: tenderness, pedal edema, joint swelling, calf tenderness Back exam: Present: normal inspection Neurological exam: Present: alert, oriented X3, CN II-XII intact Psychiatric exam: Present: normal affect, normal mood Skin exam: Present: warm, dry, intact. Absent: rash Course Vital Signs 03/07/19 03/07/19 03/07/19 19:37 20:11 20:47 Temperature 97.4 F L Pulse Rate 119 H 95 90 Respiratory 20 20 18 Rate Blood Pressure 120/81 140/78 139/81 O2 Sat by Pulse 97 97 98 Oximetry 03/07/19 22:00 Temperature Pulse Rate 88 Respiratory 18 Rate Blood Pressure 139/89 O2 Sat by Pulse 97 Oximetry Chest Pain MDM - MDM I did review the imaging and report no acute findings are seen other than evidence of a nodule in the left lung. Recently complete report. Patient does demonstrate evidence of dehydration she's had persistent nausea vomiting with failure to thrive. She does demonstrate elevated troponin and BNP. She has demonstrated this on previous admissions. I did discuss case with Dr. Severino covering for Dr. Foy. Patient will be admitted for IV fluids and serial troponins as well as nebulizer treatment. After hand will be consulted Disposition Clinical Impression: Atypical chest pain, Troponin I above reference range, History of breast cancer in adulthood, Intractable vomiting, Dehydration, Dyspnea Disposition: ADMITTED IP TO THIS HOSP Condition: Fair Referrals: Real Foy MD [Primary Care Provider] - 1-2 days
[2019-03-07 20:17] LABS: Anisocytosis Slight; Basophils % (A) 0 %; Eosinophils # (A) 0.1 k/uL (0-0.7); Eosinophils % (A) 1 %; HCT 45.3 % (34.0-46.0); Lymphocytes # (A) 0.3 k/uL (1.0-4.8); Lymphocytes % (A) 2 %; MCH 28.1 pg (25.0-35.0); MCHC 31.9 g/dL (31.0-37.0); MCV 88.1 fL (80.0-100.0); Mean Platelet Volume 7.4; Monocytes # (A) 0.3 k/uL (0-1.0); Monocytes % (A) 3 %; Neutrophils % (A) 94 %; Platelet Count 205 k/uL (150-450); RBC 5.15 m/uL (3.80-5.40); RDW 19.4 % (11.5-15.5); WBC 11.7 k/uL (3.8-10.6)
[2019-03-07 20:20] LABS: HGB 14.4 gm/dL (11.4-16.0)
[2019-03-07 20:27] LABS: ALT 49 U/L (9-52); AST 154 U/L (14-36); African American GFR (CKD) >90 (>60 ml/min/1.73 sqM); Albumin 4.2 g/dL (3.5-5.0); Alkaline Phosphatase 131 U/L (38-126); Anion Gap 13 mmol/L; Blood Urea Nitrogen 13 mg/dL (7-17); Calcium 9.3 mg/dL (8.4-10.2); Carbon Dioxide 23 mmol/L (22-30); Chloride 101 mmol/L (98-107); Creatine Kinase 69 U/L (30-135); Glucose 122 mg/dL (74-99); Magnesium 1.9 mg/dL (1.6-2.3); Potassium 3.9 mmol/L (3.5-5.1); Sodium 137 mmol/L (137-145); Total Bilirubin 1.6 mg/dL (0.2-1.3); Total Protein 7.5 g/dL (6.3-8.2)
[2019-03-07 20:29] LABS: Partial Thromboplastin Time 24.2 sec (22.0-30.0)
--- NOTE | 2019-03-07 20:44 | XR ---
EXAMINATION TYPE: XR chest 2V DATE OF EXAM: 03/07/2019 COMPARISON: 02/01/2019 HISTORY: 59-year-old female with chest pain TECHNIQUE: AP and lateral views FINDINGS: Are or normal size. Aorta and pulmonary vasculature within normal limits. Scattered interstitial buckner ges. Possible left suprahilar nodularity versus summation artifact. No pleural effusion or nicolas cons olidation. IMPRESSION: 1. Interstitial prominence could reflect bronchitis or asthma. 2. Follow-up radiograph 4-6 weeks to reassess and exclude left suprahilar nodularity.
[2019-03-08] MEDS ORDERED: NITROGLYCERIN SL TABS 0.4 MG TAB SUBLINGUAL PRN (00:39)
[2019-03-08] MEDS ORDERED: HEPARIN SODIUM,PORCINE 5,000 UNIT/ML 1 ML VIAL IV ONE (00:39)
[2019-03-08] MEDS ORDERED: ALPRAZolam 0.5 MG TAB PO PRN (00:42)
[2019-03-08] MEDS ORDERED: IPRATROPIUM-ALBUTEROL 3 ML NEB INHALATION STA (00:43)
[2019-03-08] MEDS ORDERED: HEPARIN SOD,PORK IN 0.45% NACL 25,000 UNIT in 0.45% NACL 1 250ML.BAG IV SCH (00:45)
[2019-03-08] MEDS: HYDROmorphone 2 MG TAB PO PRN (01:51)
[2019-03-08 02:13] VITALS: BMI 20.3
[2019-03-08] MEDS: SODIUM CHLORIDE 0.9% 1,000 ML IV SCH ×3 (03:14→20:26)
[2019-03-08] MEDS: IPRATROPIUM-ALBUTEROL 3 ML NEB INHALATION SCH ×3 (08:19→20:30)
[2019-03-08] MEDS: ONDANSETRON 4 MG/2 ML VIAL IVP PRN ×2 (09:44→18:33)
--- NOTE | 2019-03-08 11:23 | P.CONS ---
History of Present Illness - Reason for Consult Consult date: 03/08/19 Patient admitted with nausea vomiting chest pain. Metastatic breast cancer - History of Present Illness Ms. Robles is a 59-year-old white female, patient of Dr. Foy's who was originally evaluated in March of 2015 when she presented with hypercalcemia and back pain. She was found to have locally advanced and metastatic left breast cancer at that time. MRI Spine revealeed diffuse constance mets, with pathological compression fracture at T9 level. CT scans C/A/P revealed left breast density, left axillary nodes, innumerable liver lesions, largest at that time [id number] in the right lobe. Pathology significant for invasive lobular carcinoma, ER/TX positive, [id number] Neg by FISH (2+IHC). She initially refused chemotherapy despite recommendations given her bulky disease presentation and agreed to aromatase inhibitor with Arimidex which was started on 03/29/2015. She also started Xgeva and continued on this monly to present [id number])She also received radiation therapy with palliative intent to T9. 2015 - visceral response to treatment, although progressive bone mets - 08/20/15 Ibrance was added 09/2017 - T-Spine MRI for worsening back pain which revealed compression deformity at T5 - underwent palliative radiation 06/2018 - Repeat CT C/A/P revealed worsening liver lesion and she was referred for ultrasound guided biopsy. Dr. Rebollar reviewed her images at this time and it was felt there was not further progression and liver mets appeared stable, biopsy was cancelled and she was restarted on Femara and Ibrance. Although on 10/01/18 CT C/A/P revealed further disease progression in the liver along with patient worsening symptoms. The clear progression at this time was discussed with Dr. Foy and patient and recommendations for liver biopsy in order to repeat ER/TX and [id number] receptors was set up. Ibrance was placed on hold She had a liver biopsy in early 10/23 and was subsequently admitted with concerns for bleed. This was ruled out and she was able to be discharged. Biopsy in from progressive metastatic breast cancer hormone receptor positive. The patient was then switched to Afinitor and Faslodex. Her tolerance of Afinitor was quite poor, despite dose reduction and this was ultimately stopped about a month ago. She did continue on Faslodex. The patient has been slowly declining, with reduction appetite and weight loss. She'll also been having generalized abdominal pain on and increasingly persistent basis. CT of the abdomen and pelvis on 02/12/19 indicated positivity of progression. The patient has not yet had follow-up with Dr. Foy to discuss those results. The patient presented with development of nausea and vomiting to the point where she was having trouble keeping anything down, over the past 2 days. She has had some shortness of breath off and on for more than a month. She was sent to the ER on 02/01/19, when CTA as well as cardiac workup was negative. She was discharged on inhalers. She reports increased chest pressure with exertion, as well as shortness of breath, much more prominent over the past few days. She therefore came into the emergency room, where his labs showed mild troponin elevation. She was started on IV heparin, and admitted. Consult was placed further evaluation and recommendations Review of Systems Constitutional: Reports chronic pain, Reports fatigue, Reports poor appetite, Reports weakness, Reports weight loss Eyes: denies blurred vision, denies pain Ears: deny: decreased hearing, ear discharge, earache, tinnitus Ears, nose, mouth and throat: Denies headache, Denies sore throat Cardiovascular: Reports chest pain, Reports shortness of breath Respiratory: Reports dyspnea, Reports pain, Reports pain on inspiration Gastrointestinal: Reports abdominal pain, Reports constipation, Reports nausea, Reports vomiting Genitourinary: Denies dysuria, Denies hematuria Menstruation: Reports postmenopausal Musculoskeletal: Reports as per HPI, Reports low back pain, Reports muscle weakness Integumentary: Denies pruritus, Denies rash Neurological: Reports weakness Psychiatric: Denies anxiety, Denies depression Endocrine: Reports fatigue, Reports weight change Hematologic/Lymphatic: Reports as per HPI Past Medical History Past Medical History: Cancer Additional Past Medical History / Comment(s): metastatic breast cancer originally dx 2014 -last dose chemo oral dose january 2019-pt states "was told by Dr Foy on 06-23-18 to have liver bx done to change chemo and was told the oral chemo no longer working has new tumor growth to liver"-radiation October 2017 & Apr 2015,bone mets-radiation to spine , started on oral chemo 07/01/18 and then stopped 10/06/18 History of Any Multi-Drug Resistant Organisms: None Reported Past Surgical History: Orthopedic Surgery Additional Past Surgical History / Comment(s): LEFT KNEE SURGERY 2004 Past Anesthesia/Blood Transfusion Reactions: No Reported Reaction Past Psychological History: Anxiety Smoking Status: Current every day smoker Past Alcohol Use History: None Reported Additional Past Alcohol Use History / Comment(s): started smoking at age 19,on and off <1ppd Past Drug Use History: None Reported - Past Family History Father History Unknown: Yes Family Medical History: Coronary Artery Disease (CAD), CVA/TIA Mother History Unknown: Yes Family Medical History: Cancer Additional Family Medical History / Comment(s): breast Medications and Allergies Home Medications Medication Instructions Recorded Confirmed Type HYDROmorphone [Dilaudid] 4 mg PO Q4H PRN 06/24/18 03/07/19 History fentaNYL 75MCG/HR PATCH [Duragesic 1 patch TRANSDERM Q72H 10/07/18 03/07/19 History 75MCG/HR] ALPRAZolam [Xanax] 0.5 mg PO Q8H PRN 03/07/19 03/07/19 History Allergies Allergy/AdvReac Type Severity Reaction Status Date / Time meperidine HCl [From Demerol] Allergy Rash/Hives Verified 03/07/19 20:01 Physical Exam Vitals: Vital Signs Temp Pulse Pulse Resp BP BP Pulse Ox 03/08/19 08:32 72 03/08/19 08:21 78 03/08/19 08:20 97.8 F 79 18 127/66 98 03/08/19 05:27 98 F 82 18 131/76 97 03/08/19 04:00 90 19 03/08/19 02:18 90 19 03/08/19 01:09 98.2 F 90 19 120/78 98 03/08/19 01:00 92 18 144/88 98 03/07/19 22:00 88 18 139/89 97 03/07/19 20:47 90 18 139/81 98 03/07/19 20:11 95 20 140/78 97 03/07/19 19:37 97.4 F L 119 H 20 120/81 97 Intake and Output 03/07/19 03/08/19 03/08/19 22:59 06:59 14:59 Intake Total 15.568 Balance 15.568 Intake: Intake, IV Titration 15.568 Amount Heparin Sod,Pork in 0.45% 15.568 NaCl 25,000 unit In 0.45 % NaCl 1 250ml.bag @ 12 UNITS/KG/HR 7.185 mls/hr IV .Q24H [facility] Rx#: [id number] Other: Voiding Method Toilet Weight 59.874 kg - Constitutional General appearance: no acute distress - EENT Eyes: EOMI, PERRLA ENT: hearing grossly normal, normal oropharynx - Neck Neck: no lymphadenopathy Thyroid: bilateral: normal size - Respiratory Respiratory: bilateral: CTA - Cardiovascular Rhythm: regular Heart sounds: normal: S1, S2 - Gastrointestinal General gastrointestinal: normal bowel sounds, soft - Integumentary Integumentary: normal - Neurologic Neurologic: CNII-XII intact - Musculoskeletal Musculoskeletal: generalized weakness, strength equal bilaterally Results CBC & Chem 7: 03/07/19 20:04 03/07/19 20:04 Labs: Abnormal Lab Results - Last 24 Hours (Table) 03/07/19 03/07/19 03/07/19 Range/Units 20:04 20:04 20:04 WBC 11.7 H (3.8-10.6) k/uL RDW 19.4 H (11.5-15.5) % Neutrophils # 11.0 H (1.3-7.7) k/uL Lymphocytes # 0.3 L (1.0-4.8) k/uL APTT (22.0-30.0) sec Glucose 122 H (74-99) mg/dL Total Bilirubin 1.6 H (0.2-1.3) mg/dL AST 154 H (14-36) U/L Alkaline Phosphatase 131 H (38-126) U/L Troponin I 0.050 H* (0.000-0.034) ng/mL 03/08/19 03/08/19 03/08/19 Range/Units 01:57 01:57 08:19 WBC (3.8-10.6) k/uL RDW (11.5-15.5) % Neutrophils # (1.3-7.7) k/uL Lymphocytes # (1.0-4.8) k/uL APTT 162.1 H* (22.0-30.0) sec Glucose (74-99) mg/dL Total Bilirubin (0.2-1.3) mg/dL AST (14-36) U/L Alkaline Phosphatase (38-126) U/L Troponin I 0.071 H* 0.041 H* (0.000-0.034) ng/mL 03/08/19 Range/Units 08:19 WBC (3.8-10.6) k/uL RDW (11.5-15.5) % Neutrophils # (1.3-7.7) k/uL Lymphocytes # (1.0-4.8) k/uL APTT 48.1 H (22.0-30.0) sec Glucose (74-99) mg/dL Total Bilirubin (0.2-1.3) mg/dL AST (14-36) U/L Alkaline Phosphatase (38-126) U/L Troponin I (0.000-0.034) ng/mL Chest x-ray: report reviewed CT scan - chest: report reviewed Assessment and Plan (1) Atypical chest pain Narrative/Plan: The patient has has this complaint off and on, with CTA in the past, in 11/22 and 01/22 been negative. Given her history of metastatic malignancy, worsening of symptoms, as well as elevated troponin, CTA will need to be repeated to rule out PE. If negative the source could be her widespread bone metastasis. Current Visit: Yes Status: Acute Code(s): R07.89 - OTHER CHEST PAIN SNOMED Code(s): 289702979 (2) Intractable vomiting Narrative/Plan: Etiology of this is not known at this time. However progression of malignancy is definite possibility with computed tomography scan on 02/12/19 indicating the same. malignancy could cause the same due to progression of liver metastasis, and/or development of peritoneal disease causing diminished bowel motility. Of note, she has been complaining of generalized abdominal pain, as well as episodes of constipation. - On exam, she does not appear to be obviously obstructed. - Supportive treatment for nausea with IV antiemetics. Continue restricted diet at this time - Check CT of the abdomen and pelvis. Current Visit: Yes Status: Acute Code(s): R11.10 - VOMITING, UNSPECIFIED SNOMED Code(s): 498413672 (3) Stage 4 carcinoma of breast, ER+ Narrative/Plan: Diagnostic and therapeutic circumstances as described. The patient has widespread metastatic disease, and is currently on Faslodex alone, due to intolerance of Afinitor. - Her computed tomography scan from 02/12/19, as well as current clinical presentation both are concerning for progression. Additional imaging to be ordered as noted above. I will also check tumor markers. Continue supportive care in the meantime. Current Visit: Yes Status: Acute Code(s): C50.919 - MALIGNANT NEOPLASM OF UNSP SITE OF UNSPECIFIED FEMALE BREAST; Z17.0 - ESTROGEN RECEPTOR POSITIVE STATUS [ER+] SNOMED Code(s): 159617488 Plan: IV Ativan will be ordered when necessary for CAT scan as the patient has proble ms with claustrophobia
[2019-03-08] MEDS ORDERED: LORazepam 2 MG/ML INJ IV PRN (11:26)
[2019-03-08] MEDS ORDERED: ACETAMINOPHEN TAB 500 MG TAB PO PRN (13:05)
[2019-03-08] MEDS ORDERED: TEMAZEPAM 15 MG CAP PO PRN (13:05)
[2019-03-08] MEDS ORDERED: HYDROcodone/APAP 5-325MG 1 EACH TAB PO PRN (13:05)
--- NOTE | 2019-03-08 13:05 | CONS ---
CONSULTATION This is a 59-year-old lady with metastatic breast cancer that presented to hospital complaining of shortness of breath and chest pain. Her chest discomfort is sharp, atypical, unrelated to exertion, not associated with diaphoresis and seems musculoskeletal in origin. She underwent troponins in the ER and they were mildly elevated without any definite pattern to it and she is admitted as a non STEMI and Cardiology had been consulted for the same. At the time of my evaluation she is pain free, hemodynamically stable and in no apparent distress. Given her fairly advanced breast cancer where the chemotherapy had recently been stopped, from what the patient tells me because it is no longer working, I believe no further cardiac intervention is needed at this time. The patient has extensive mets including in the liver and bone. PAST MEDICAL HISTORY: Significant for metastatic breast cancer. MEDICATIONS: Medications at home include fentanyl, Dilaudid and Xanax. ALLERGIES: To DEMEROL. FAMILY HISTORY: Negative for premature coronary artery disease. SOCIAL HISTORY: Negative for smoking. REVIEW OF SYSTEMS: Unremarkable other than what has been mentioned so far. PHYSICAL EXAMINATION: Comfortable at rest. Heart rate is 70 beats per minute. Blood pressure is 127/66, respiratory rate 18. Chest exam reveals diminished air entry at the bases. I do not hear any crackles or rhonchi. Heart exam reveals first and second heart sounds. No gallop. No murmur. Abdomen is soft. Exam of extremities did not reveal any edema. LABS: Show a hemoglobin of 14.4, platelet count is 205. Potassium is 3.9, creatinine is 0.6. Three sets of tropes are at 0.05, 0.07 and 0.04. EKG showed sinus tachycardia with nonspecific ST-T wave changes. ASSESSMENT: 1. Metastatic breast cancer. 2. Elevated troponin of no clear clinical significance. PLAN: I will obtain a 2D echo on her to evaluate her LV function and wall motion. She does not require any further cardiac intervention or specific therapies. Prognosis is guarded as a result of her breast cancer. MMODL / IJN: [id number] /
[2019-03-08] MEDS: IOPAMIDOL-300 CONTRAST 30 ML VIAL (ORAL USE) PO PRN ×2 (13:29→14:34)
--- NOTE | 2019-03-08 13:34 | ECHOF ---
Referral Reason:troponin MEASUREMENTS -------- HEIGHT: 170.2 cm WEIGHT: 59.9 kg BP: 120/60 IVSd: 1.0 cm (0.6 - 1.1) LVIDd: 4.3 cm (3.9 - 5.3) LVPWd: 1.3 cm (0.6 - 1.1) IVSs: 1.2 cm LVIDs: 2.6 cm LVPWs: 1.6 cm LA Diam: 3.2 cm (2.7 - 3.8) LAESV Index (A-L): 25.55 ml/m Ao Diam: 3.2 cm (2.0 - 3.7) AV Cusp: 1.7 cm (1.5 - 2.6) LA Diam: 4.2 cm (2.7 - 3.8) MV EXCURSION: 24.295 mm (> 18.000) MV EF SLOPE: 126 mm/s (70 - 150) EPSS: 0.5 cm MV E Freddie: 0.71 m/s MV DecT: 248 ms MV A Freddie: 0.81 m/s MV E/A Ratio: 0.88 RAP: 5.00 mmHg RVSP: 40.39 mmHg FINDINGS -------- Sinus rhythm. This was a technically good study. LV size, wall thickness and systolic function are normal, with an EF greater than 55%. The left kain tricular size is normal. The diastolic filling pattern is normal for the age of the patient 10.28. The right ventricle is normal in size. The left atrial size is normal. The right atrial size is normal. The aortic valve is trileaflet, and appears structurally normal. No aortic stenosis or regurgitation. Mild mitral annular calcification present. Mild mitral regurgitation is present. Mild tricuspid regurgitation present. There is mild pulmonary hypertension. The right ventricular systolic pressure, as measured by Doppler, is 40.39mmHg. There is no pulmonic regurgitation present. The aortic root size is normal. There is no pericardial effusion. CONCLUSIONS -------- 1. Sinus rhythm. 2. This was a technically good study. 3. LV size, wall thickness and systolic function are normal, with an EF greater than 55%. 4. The left ventricular size is normal. 5. The diastolic filling pattern is normal for the age of the patient 10.28 6. The right ventricle is normal in size. 7. The left atrial size is normal. 8. The right atrial size is normal. 9. The aortic valve is trileaflet, and appears structurally normal. No aortic stenosis or regurgitati on. 10. Mild mitral annular calcification present. 11. Mild mitral regurgitation is present. 12. Mild tricuspid regurgitation present. 13. There is mild pulmonary hypertension. 14. The right ventricular systolic pressure, as measured by Doppler, is 40.39mmHg. 15. There is no pulmonic regurgitation present. 16. The aortic root size is normal. 17. There is no pericardial effusion. SPECIAL PROCEDURES NURSE: Pattie Ledesma RDCS
--- NOTE | 2019-03-08 14:41 | HP ---
HISTORY AND PHYSICAL DATE OF SERVICE: 03/08/2019 CHIEF COMPLAINT: Chest pain and shortness of breath. HISTORY OF PRESENT ILLNESS: This 59-year-old woman with a past medical history of multiple medical problems including metastatic breast cancer, ERPR positive, HER2 negative, being followed by Dr. Foy in the outpatient setting also had other multiple medical issues including DJD, history of anxiety. Also, the patient is having increasing difficulty with vomiting and unable to keep anything down. The patient also had some abdominal discomfort. Yesterday the patient had chest pain which was located in the retrosternal left-sided chest pain. The patient is doing chemotherapy from by Dr. Foy. The most recent CT scan of the abdomen and pelvis on 02/12/[address] Ordaz. At the time of admission the pain was not radiating elsewhere and the patient was found to have troponin elevated at 0.050, 0.071, 0.7, indicating the possibility of non ST- segment elevation myocardial infarction. The patient is on IV heparin. Cardiology is recommending medical treatment and a 2D echo with Doppler and Dr. Ordaz is recommending a CTA also at this time. There is no history of fever or rigors. No headache, loss of consciousness or seizures at this time. PAST MEDICAL: Metastatic breast cancer, history of liver biopsies, anxiety, history of nicotine dependence. MEDICATIONS PRIOR TO ADMISSION: 1. Fentanyl 75 mcg q72 hours. 2. Dilaudid 4 mg p.o. q.4 p.r.n. 3. Xanax 0.5 q.8 p.r.n. ALLERGIES: DEMEROL. FAMILY HISTORY: History of CAD, CVA, TIA, and breast cancer. SOCIAL HISTORY: History of smoking, continued, ongoing. REVIEW OF SYSTEMS: ENT: No diminished hearing or diminished vision. CARDIOVASCULAR: As mentioned earlier. RESPIRATORY: As mentioned earlier. GI: As mentioned earlier. : No dysuria. NERVOUS SYSTEM: No numbness or weakness. ALLERGY: No asthma. MUSCULOSKELETAL: As mentioned earlier. HEMATOLOGY: As mentioned earlier. ENDOCRINE: No history of diabetes or hypothyroidism. CONSTITUTIONAL: As mentioned earlier. DERMATOLOGY: Negative. PSYCHIATRY: As mentioned earlier. PHYSICAL EXAMINATION: Alert and oriented x3. Pulse 75, blood pressure 103/50, respirations 17, temperature normal, pulse ox 97% on room air. HEENT: Conjunctivae normal. Oral mucosa moist. NECK: No jugular venous distention. No lymph node enlargement. CARDIOVASCULAR: S1, S2. RESPIRATORY: Diminished breath sounds at the bases. A few scattered rhonchi and crackles. ABDOMEN: Soft, nontender. No mass palpable. No hepatosplenomegaly. LEGS: No edema, no swelling. NERVOUS SYSTEM: Higher functions as mentioned earlier. Moves all four limbs. No focal deficits. LYMPHATICS: No lymph node in neck or axilla. SKIN: No rash. JOINTS: No active deforming arthropathy. LABS: WBC 7.7, hemoglobin 14.4, and APTT 162.1. Glucose 122 and total bilirubin is 1.6 and the AST is 154. Troponin as noted. The EKG which was personally reviewed by me showed nonspecific ST-T changes. ASSESSMENT: 1. Chest pain, possible acute non ST-segment elevation myocardial infarction with troponin 0.071. 2. Stage IV breast cancer. 3. Shortness of breath for evaluation. 4. Metastatic breast cancer, ERPR positive, HER2 negative. 5. Intractable vomiting and nausea. 6. Elevated AST, possibly secondary from metastases and increased bilirubin. 7. Increased WBC. 8. History of anxiety. 9. History of ongoing nicotine dependence. RECOMMENDATIONS AND DISCUSSION: In this 59-year-old woman who presented with multiple complex medical issues, at this time I recommend to continue current medications, continue heparin, continue with medical treatment. Otherwise, closely with Cardiology and as well as Hematology/Oncology. CTA has been ordered. Home medication will be resumed. Symptomatic treatment will be provided and a 2D echo will be obtained. MMODL / IJN: [id number] /
--- NOTE | 2019-03-08 15:39 | CT ---
EXAMINATION TYPE: CT abdomen pelvis w con DATE OF EXAM: 03/08/2019 HISTORY: Abdominal pain, nausea, vomiting. History of breast cancer. CT DLP: 811.2mGycm Automated Exposure Control for Dose Reduction was Utilized. CONTRAST: CT scan of the abdomen and pelvis is performed with IV Contrast, patient injected with 100 mL of Isov ue 300. COMPARISON: 02/12/2019 FINDINGS: LUNG BASES: Discussed on the CT thorax of the same date LIVER/GB: There is redemonstration of innumerable hepatic metastases with the largest lesion previous ly measuring approximately 3.4 cm and currently measuring approximately 4.2 cm x 5.1 cm on image 16 o f series 501. There is fluid surrounding the liver that appears overall simple in nature extending in to the pelvis. Overall mild volume ascites. PANCREAS: No significant abnormality is seen. SPLEEN: No significant abnormality is seen. ADRENALS: Multiple metastatic left adrenal gland nodules are seen measuring up to 2.2 cm. Right adren al gland also demonstrates a nodule injury 1.3 cm. 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 No hydr onephrosis of either kidney. BOWEL: No dilated large or small bowel. UTERUS/ADNEXA: Within the pelvis there is the appearance of bilateral adnexal hemorrhagic crenulated appearing cysts and pelvic varices. LYMPH NODES: There is redemonstration of periaortic adenopathy with the largest lymph node measuring 1.2 cm in short axis on image 31. Numerous other enlarged retroperitoneal lymph nodes have slightly p rogressed from the prior. OSSEOUS STRUCTURES: Diffuse skeletal metastasis is seen throughout the visualized osseous structures. OTHER: Sensitive atherosclerosis is seen of the abdominal aorta and its branches. IMPRESSION: Progression of disease with enlargement of the largest liver lesion measuring 4.2 x 5.1 c m and previously measuring 3.4 cm. There is also redemonstration of bilateral metastatic adrenal glan d nodules and slight interval enlargement of the retroperitoneal adenopathy. Degree of abdominal asci chandra is minimally increased but remains overall small volume. Bilateral adnexal lesions are stable and could represent hemorrhagic cysts.
--- NOTE | 2019-03-08 15:47 | CT ---
EXAMINATION TYPE: CT angio chest DATE OF EXAM: 03/08/2019 COMPARISON: CT chest abdomen pelvis dated 10/01/2018 HISTORY: Pleuritic chest pain. Shortness of breath. History of breast cancer. CT DLP: 320.3 mGycm. Automated Exposure Control for Dose Reduction was Utilized. CONTRAST: CTA scan of the thorax is performed with IV Contrast, patient injected with 100 mL of Isovue 300, pul monary embolism protocol. MIP Images are created on CT scanner and reviewed. FINDINGS: LUNGS: There is mild centrilobular emphysematous change and subpleural reticulation that may relate t o atelectasis or fibrosis. Bandlike pleural parenchymal scarring in the lingula and right middle lobe . Trace pleural effusions with associated subsegmental dependent compressive atelectasis. No sizable pulmonary mass. The lungs are grossly clear, there is no concerning parenchymal mass or nodule identi fied. There is no pleural effusion or pneumothorax seen. The tracheobronchial tree is patent. MEDIASTINUM: There is slightly suboptimal enhancement of the pulmonary artery and its branches, howev er no pulmonary embolus is seen. There are no greater than 1 cm hilar or mediastinal lymph nodes. No cardiomegaly or pericardial effusion is seen. Mild atherosclerosis of the coronary arteries and th oracic aorta. Thyroid gland is enlarged and heterogenous. OTHER: There is thickening of the left visualized breast and biopsy marker noted. Abnormal left axill brandon lymph node measures 1.1 cm in short axis and is rounded in morphology. Very small hiatal hernia s uspected. Visualized portions of the upper abdomen are discussed on the abdominal CT of the same date . Diffuse osseous skeletal metastasis is seen throughout the thorax. IMPRESSION: 1. Trace pleural effusions and scattered areas of subsegmental atelectasis with mild emphysematous ch angeline. 2. Bolus timing is slightly suboptimal however no CT evidence of pulmonary embolus is seen. 3. Skin thickening of the left breast likely relates to the patient's known breast carcinoma or postt reatment change. Abnormal adenopathy is seen within the left axilla.
[2019-03-08] MEDS: NICOTINE 14MG/24HR PATCH TRANSDERM SCH (17:03)
[2019-03-08 17:07] LABS: Appearance,Urine Clear (Clear); Bilirubin,Urine Negative (Negative); Blood,Urine Negative (Negative); Color,Urine Yellow; Glucose,Urine (UA) Negative (Negative); Ketones,Urine 1+ (Negative); Leukocyte Esterase,Urine Trace (Negative); Mucus,Urine Occasional /hpf; Nitrite,Urine Negative (Negative); PH, Urine 5.5 (5.0-8.0); Protein,Urine Trace (Negative); Squamous Epithelial Cell,Urine <1 /hpf (0-4); WBC,Urine 4 /hpf (0-5)
[2019-03-08 17:14] LABS: Specific Gravity,Urine 1.049 (1.001-1.035)
[2019-03-08] MEDS: HEPARIN SODIUM,PORCINE 5,000 UNIT/ML 1 ML VIAL SQ SCH (20:26)
[2019-03-09] MEDS: IPRATROPIUM-ALBUTEROL 3 ML NEB INHALATION SCH ×5 (00:02→19:22)
[2019-03-09] MEDS: ONDANSETRON 4 MG/2 ML VIAL IVP PRN (03:05)
[2019-03-09 06:14] LABS: Anisocytosis Slight; Basophils # (A) 0.1 k/uL (0-0.2); Basophils % (A) 1 %; Eosinophils # (A) 0.5 k/uL (0-0.7); Eosinophils % (A) 10 %; HCT 36.2 % (34.0-46.0); Lymphocytes # (A) 0.6 k/uL (1.0-4.8); Lymphocytes % (A) 12 %; MCH 28.1 pg (25.0-35.0); MCHC 31.5 g/dL (31.0-37.0); MCV 89.3 fL (80.0-100.0); Mean Platelet Volume 7.5; Monocytes # (A) 0.3 k/uL (0-1.0); Monocytes % (A) 6 %; Neutrophils # (A) 3.6 k/uL (1.3-7.7); Neutrophils % (A) 69 %; Platelet Count 147 k/uL (150-450); RBC 4.05 m/uL (3.80-5.40); RDW 18.9 % (11.5-15.5); WBC 5.3 k/uL (3.8-10.6)
[2019-03-09 06:28] LABS: African American GFR (CKD) >90 (>60 ml/min/1.73 sqM); Anion Gap 4 mmol/L; Blood Urea Nitrogen 8 mg/dL (7-17); Calcium 7.4 mg/dL (8.4-10.2); Carbon Dioxide 26 mmol/L (22-30); Chloride 108 mmol/L (98-107); Cholesterol 136 mg/dL (<200); Glucose 80 mg/dL (74-99); HDL Cholesterol 52 mg/dL (40-60); LDL Cholesterol,Calculated 68 mg/dL (0-99); Potassium 3.7 mmol/L (3.5-5.1); Sodium 138 mmol/L (137-145); Triglycerides 80 mg/dL (<150)
[2019-03-09 06:33] LABS: HGB 11.4 gm/dL (11.4-16.0)
[2019-03-09] MEDS: PANTOPRAZOLE 40 MG TABLET PO SCH (07:01)
[2019-03-09] MEDS: ASPIRIN 325 MG TAB PO SCH (08:10)
[2019-03-09] MEDS: NICOTINE 14MG/24HR PATCH TRANSDERM SCH (08:11)
[2019-03-09] MEDS: HEPARIN SODIUM,PORCINE 5,000 UNIT/ML 1 ML VIAL SQ SCH ×2 (08:11→22:59)
[2019-03-09] MEDS: METOCLOPRAMIDE 5 MG TAB PO SCH ×2 (11:23→17:18)
[2019-03-09 12:43] LABS: CA27.29 Breast Ca Marker 990.6 U/mL (0.0-38.5); Cancer Antigen 153 503.2 U/mL (0.0-32.3)
[2019-03-09] MEDS: HYDROmorphone 2 MG TAB PO PRN (15:05)
--- NOTE | 2019-03-09 15:51 | P.PN ---
Subjective Progress Note Date: 03/09/19 Principal diagnosis: This is a 59-year-old female with a past medical history of multiple medical problems including metastatic breast cancer and was recently admitted for abdominal discomfort, chest pain, shortness of breath patient is being followed closely. Oncology is following as well. Patient sees Dr. Foy in the outpatient setting and has been receiving chemotherapy. Patient has been having issues with nausea and decreased appetite. Discussed with the patient at length today about increasing her oral intake with yogurts or Magic cups and continuing to encourage oral intake. Patient states that she has been very nauseated and unable to tolerate many foods. Discussed with the patient also about continuing to drink this water at this time and avoiding her Pepsi or other pops. Patient also encouraged to drink ensures with each meal. Daughter Danelle at the bedside and verbalized understanding of the treatment plan. Patient denies any chest pain or shortness of breath at this time. Patient denies any palpitations and has been afebrile. Cardiology is also following at this time. Guarded prognosis. Objective - Vital Signs Vital signs: Vital Signs Temp 97.9 F 03/09/19 07:00 Pulse 80 03/09/19 08:00 Resp 16 03/09/19 08:00 BP 110/56 03/09/19 07:00 Pulse Ox 93 L 03/09/19 07:28 Intake & Output 03/08/19 03/09/19 03/09/19 18:59 06:59 18:59 Intake Total 420 300 480 Output Total 700 Balance -280 300 480 Intake: Oral 420 300 480 Output: Urine 700 Other: Voiding Method Toilet # Voids 2 - Exam Gen: This is a 59-year-old female sitting up in bed in no acute distress. Vital signs are stable. Blood pressure is 110/56, respirations are 16, pulse is 80, temp is 97.9F, oxygen saturation is 95% on room air. HEENT: Head is atraumatic, normocephalic. Pupils equal, round. Sclerae is anicteric. NECK: Supple. No JVD. No lymphadenopathy. No thyromegaly. LUNGS: Diminished breath sounds at the bases a few scattered crackles noted. No wheezes noted on exam. No intercostal retractions. HEART: Regular rate and rhythm. No murmur. ABDOMEN: Soft. Thin . Bowel sounds are present. No masses. No tenderness. EXTREMITIES: No pedal edema. No calf tenderness. NEUROLOGICAL: Patient is awake, alert and oriented x3. Cranial nerves 2 through 12 are grossly intact. - Labs CBC & Chem 7: 03/09/19 05:58 03/09/19 05:58 Labs: Abnormal Lab Results - Last 24 Hours (Table) 03/08/19 03/08/19 03/09/19 Range/Units 08:17 16:40 05:58 RDW (11.5-15.5) % Plt Count (150-450) k/uL Lymphocytes # (1.0-4.8) k/uL Chloride 108 H (98-107) mmol/L Calcium 7.4 L (8.4-10.2) mg/dL CA 15-3 Antigen 503.2 H (0.0-32.3) U/mL CA 27-29 990.6 H (0.0-38.5) U/mL Ur Specific [place] 1.049 H (1.001-1.035) Urine Protein Trace H (Negative) Urine Ketones 1+ H (Negative) Ur Leukocyte Esterase Trace H (Negative) Urine Mucus Occasional H (None) /hpf 03/09/19 Range/Units 05:58 RDW 18.9 H (11.5-15.5) % Plt Count 147 L (150-450) k/uL Lymphocytes # 0.6 L (1.0-4.8) k/uL Chloride (98-107) mmol/L Calcium (8.4-10.2) mg/dL CA 15-3 Antigen (0.0-32.3) U/mL CA 27-29 (0.0-38.5) U/mL Ur Specific [place] (1.001-1.035) Urine Protein (Negative) Urine Ketones (Negative) Ur Leukocyte Esterase (Negative) Urine Mucus (None) /hpf Assessment and Plan Assessment: Chest pain, possible acute non-ST segment elevated myocardial infarction with a troponin of 0.071 Stage IV breast cancer Shortness of breath Metastatic breast cancer, ERPR positive, HER2 negative Intractable vomiting and nausea Elevated AST, possibly secondary from metastasis and increased bilirubin Increased WBC History of anxiety History of ongoing nicotine dependence Recommendations and discussion: Recommend to continue current medications, management, and symptomatic treatment. Patient is currently off of the heparin drip. Continue bronchodila tors as needed as she feels they make her jittery. Reglan added before meals to aid in an increase in oral intake. Will continue to monitor vital signs and labs closely. Cardiology and hematology/oncology are following. 2-D echo was done yesterday showing ejection fraction of greater than 55%. CTA of the chest was done yesterday showing a trace pleural effusions and scattered areas of subsegmental atelectasis with mild emphysematous changes. No evidence of pulmonary embolism seen. Skin thickening of the left breast likely related to the patient's known breast carcinoma or posttreatment change with abnormal adenopathy within the left axilla noted. Guarded prognosis. Further recommen dations to follow. Possible discharge in 24-48 hours.
--- NOTE | 2019-03-09 16:01 | P.PN ---
Subjective Progress Note Date: 03/09/19 This is a 59-year-old female with metastatic breast cancer presented to the hospital with symptoms of shortness of breath and chest discomfort. Her pain was very atypical in nature. She did have mild troponin abnormality noted on admission here, echo revealed normal left ventricular systolic function. Hemo Dynamically she is stable. CTA of the chest did not reveal any evidence of pulmonary embolism. Objective - Vital Signs Vital signs: Vital Signs Temp 97.9 F 03/09/19 07:00 Pulse 80 03/09/19 08:00 Resp 16 03/09/19 08:00 BP 110/56 03/09/19 07:00 Pulse Ox 93 L 03/09/19 07:28 Intake & Output 03/08/19 03/09/19 03/09/19 18:59 06:59 18:59 Intake Total 420 300 480 Output Total 700 Balance -280 300 480 Intake: Oral 420 300 480 Output: Urine 700 Other: Voiding Method Toilet # Voids 2 - Exam PHYSICAL EXAMINATION: GENERAL: 0 female in no acute distress at the time of my examination HEENT: Head is atraumatic, normocephalic. Pupils equal, round. Sclera anicteric. Conjunctiva are clear. Mucous membranes of the mouth are moist. Neck is supple. There is no elevated jugular venous pressure. No carotid] bruit is heard. HEART EXAMINATION: Heart S1, S2 normal. No murmur or gallop heard. CHEST EXAMINATION: Lungs are clear to auscultation and precussion. No chest wall tenderness is noted on palpation or with deep breathing. ABDOMEN: Soft, nontender. Bowel sounds are heard. No organomegaly noted. EXTREMITIES: 2+ peripheral pulses with no evidence of peripheral edema and no calf tenderness noted. NEUROLOGIC patient is awake, alert and oriented 3 . . - Labs CBC & Chem 7: 03/09/19 05:58 03/09/19 05:58 Labs: Abnormal Lab Results - Last 24 Hours (Table) 03/08/19 03/08/19 03/09/19 Range/Units 08:17 16:40 05:58 RDW (11.5-15.5) % Plt Count (150-450) k/uL Lymphocytes # (1.0-4.8) k/uL Chloride 108 H (98-107) mmol/L Calcium 7.4 L (8.4-10.2) mg/dL CA 15-3 Antigen 503.2 H (0.0-32.3) U/mL CA 27-29 990.6 H (0.0-38.5) U/mL Ur Specific [place] 1.049 H (1.001-1.035) Urine Protein Trace H (Negative) Urine Ketones 1+ H (Negative) Ur Leukocyte Esterase Trace H (Negative) Urine Mucus Occasional H (None) /hpf 03/09/19 Range/Units 05:58 RDW 18.9 H (11.5-15.5) % Plt Count 147 L (150-450) k/uL Lymphocytes # 0.6 L (1.0-4.8) k/uL Chloride (98-107) mmol/L Calcium (8.4-10.2) mg/dL CA 15-3 Antigen (0.0-32.3) U/mL CA 27-29 (0.0-38.5) U/mL Ur Specific [place] (1.001-1.035) Urine Protein (Negative) Urine Ketones (Negative) Ur Leukocyte Esterase (Negative) Urine Mucus (None) /hpf Assessment and Plan Plan: Assessment and plan #1 metastatic breast cancer #2 atypical chest pain with a mild abnormality in troponin, not consistent with acute coronary syndrome. Echo revealed normal left ventricular systolic fu nction and EKG did not reveal any significant changes. Plan Cardiology's perspective, patient may be able to be discharged once cleared by primary. We will follow-up in the office post discharge. DNP note has been reviewed, I agree with a documented findings and plan of care. Patient was seen and examined.
--- NOTE | 2019-03-09 16:10 | P.PN ---
Subjective Progress Note Date: 03/09/19 Principal diagnosis: Progressive Metastatic Breast Cancer Progressive disease on scans. Unable to tolerate much PO intake Objective - Vital Signs Vital signs: Vital Signs Temp 97.9 F 03/09/19 07:00 Pulse 80 03/09/19 08:00 Resp 16 03/09/19 08:00 BP 110/56 03/09/19 07:00 Pulse Ox 93 L 03/09/19 07:28 Intake & Output 03/08/19 03/09/19 03/09/19 18:59 06:59 18:59 Intake Total 420 300 480 Output Total 700 Balance -280 300 480 Intake: Oral 420 300 480 Output: Urine 700 Other: Voiding Method Toilet # Voids 2 - Exam - Constitutional General appearance: no acute distress - EENT Eyes: EOMI, PERRLA ENT: hearing grossly normal, normal oropharynx - Neck Neck: no lymphadenopathy Thyroid: bilateral: normal size - Respiratory Respiratory: bilateral: CTA - Cardiovascular Rhythm: regular Heart sounds: normal: S1, S2 - Gastrointestinal General gastrointestinal: normal bowel sounds, soft - Integumentary Integumentary: normal - Neurologic Neurologic: CNII-XII intact - Musculoskeletal Musculoskeletal: generalized weakness, strength equal bilaterally - Labs CBC & Chem 7: 03/09/19 05:58 03/09/19 05:58 Labs: Abnormal Lab Results - Last 24 Hours (Table) 03/08/19 03/08/19 03/09/19 Range/Units 08:17 16:40 05:58 RDW (11.5-15.5) % Plt Count (150-450) k/uL Lymphocytes # (1.0-4.8) k/uL Chloride 108 H (98-107) mmol/L Calcium 7.4 L (8.4-10.2) mg/dL CA 15-3 Antigen 503.2 H (0.0-32.3) U/mL CA 27-29 990.6 H (0.0-38.5) U/mL Ur Specific [place] 1.049 H (1.001-1.035) Urine Protein Trace H (Negative) Urine Ketones 1+ H (Negative) Ur Leukocyte Esterase Trace H (Negative) Urine Mucus Occasional H (None) /hpf 03/09/19 Range/Units 05:58 RDW 18.9 H (11.5-15.5) % Plt Count 147 L (150-450) k/uL Lymphocytes # 0.6 L (1.0-4.8) k/uL Chloride (98-107) mmol/L Calcium (8.4-10.2) mg/dL CA 15-3 Antigen (0.0-32.3) U/mL CA 27-29 (0.0-38.5) U/mL Ur Specific [place] (1.001-1.035) Urine Protein (Negative) Urine Ketones (Negative) Ur Leukocyte Esterase (Negative) Urine Mucus (None) /hpf Assessment and Plan Plan: Atypical chest pain - The patient has has this complaint off and on, with CTA in the past, in 11/22 and 01/22 been negative. - Given her history of metastatic malignancy, worsening of symptoms, as well as elevated troponin, CTA will need to be repeated to rule out PE. If negative the source could be her widespread bone metastasis. Intractable vomiting Etiology of this is not known at this time. However progression of malignancy is definite possibility with computed tomography scan on 02/12/19 indicating the same. malignancy could cause the same due to progression of liver metastasis, and/or development of peritoneal disease causing diminished bowel motility. Of note, she has been complaining of generalized abdominal pain, as well as episodes of constipation. - On exam, she does not appear to be obviously obstructed. - Supportive treatment for nausea with IV antiemetics. Continue restricted diet at this time - Check CT of the abdomen and pelvis. Stage 4 carcinoma of breast, ER+ - Progressive disease on Faslodex, discussed with Dr. Foy Diagnostic and therapeutic circumstances as described. The patient has widespread metastatic disease, and is currently on Faslodex alone, due to intolerance of Afinitor. - Her computed tomography scan from 02/12/19, as well as current clinical presentation both are concerning for progression. Additional imaging to be ordered as noted above. Decreased PO intake: - Trial Marinol
[2019-03-09] MEDS ORDERED: SENNOSIDES-DOCUSATE SODIUM 1 EACH TAB PO STA (18:04)
[2019-03-09] MEDS: SODIUM CHLORIDE 0.9% 1,000 ML IV SCH (18:05)
[2019-03-09] MEDS: DRONABINOL 2.5 MG CAP PO SCH (19:07)
[2019-03-10] MEDS: IPRATROPIUM-ALBUTEROL 3 ML NEB INHALATION SCH ×5 (00:15→23:42)
[2019-03-10] MEDS: DRONABINOL 2.5 MG CAP PO SCH ×2 (06:09→17:34)
[2019-03-10] MEDS: PANTOPRAZOLE 40 MG TABLET PO SCH (06:09)
[2019-03-10] MEDS: METOCLOPRAMIDE 5 MG TAB PO SCH ×3 (06:09→17:18)
[2019-03-10 07:19] LABS: Anisocytosis Slight; Basophils % (A) 1 %; Eosinophils # (A) 0.7 k/uL (0-0.7); Eosinophils % (A) 14 %; HCT 35.2 % (34.0-46.0); HGB 11.5 gm/dL (11.4-16.0); Hypochromasia Slight; Lymphocytes % (A) 19 %; MCH 28.8 pg (25.0-35.0); MCHC 32.5 g/dL (31.0-37.0); MCV 88.5 fL (80.0-100.0); Mean Platelet Volume 6.9; Monocytes # (A) 0.3 k/uL (0-1.0); Monocytes % (A) 5 %; Neutrophils % (A) 59 %; Platelet Count 138 k/uL (150-450); RBC 3.98 m/uL (3.80-5.40); RDW 18.5 % (11.5-15.5); WBC 5.1 k/uL (3.8-10.6)
[2019-03-10 07:22] LABS: ALT 38 U/L (9-52); AST 99 U/L (14-36); African American GFR (CKD) >90 (>60 ml/min/1.73 sqM); Albumin 2.8 g/dL (3.5-5.0); Alkaline Phosphatase 84 U/L (38-126); Anion Gap 6 mmol/L; Blood Urea Nitrogen 9 mg/dL (7-17); Calcium 8.1 mg/dL (8.4-10.2); Carbon Dioxide 26 mmol/L (22-30); Chloride 106 mmol/L (98-107); Glucose 92 mg/dL (74-99); Potassium 3.5 mmol/L (3.5-5.1); Sodium 138 mmol/L (137-145); Total Protein 5.5 g/dL (6.3-8.2)
[2019-03-10 07:25] LABS: INR 1.1 (<1.2); Prothrombin Time 11.5 sec (9.0-12.0)
[2019-03-10] MEDS: ASPIRIN 325 MG TAB PO SCH (09:11)
[2019-03-10] MEDS: NICOTINE 14MG/24HR PATCH TRANSDERM SCH (09:11)
[2019-03-10] MEDS: HEPARIN SODIUM,PORCINE 5,000 UNIT/ML 1 ML VIAL SQ SCH ×2 (09:11→20:46)
[2019-03-10] MEDS: ONDANSETRON 4 MG/2 ML VIAL IVP PRN ×2 (12:31→20:57)
[2019-03-10] MEDS: SODIUM CHLORIDE 0.9% 1,000 ML IV SCH (14:47)
--- NOTE | 2019-03-10 15:31 | P.PN ---
Subjective Progress Note Date: 03/10/19 Principal diagnosis: This is a 59-year-old female with a past medical history of multiple medical problems including metastatic breast cancer and was recently admitted for abdominal discomfort, chest pain, shortness of breath patient is being followed closely. Oncology is following as well. Patient sees Dr. Foy in the outpatient setting and has been receiving chemotherapy. Patient has been having issues with nausea and decreased appetite. Discussed with the patient at length today about increasing her oral intake with yogurts or Magic cups and continuing to encourage oral intake. Patient states that she has been very nauseated and unable to tolerate many foods. Discussed with the patient also about continuing to drink this water at this time and avoiding her Pepsi or other pops. Patient also encouraged to drink ensures with each meal. Daughter Danelle at the bedside and verbalized understanding of the treatment plan. Patient denies any chest pain or shortness of breath at this time. Patient denies any palpitations and has been afebrile. Cardiology is also following at this time. Guarded prognosis. 03/10/2019 Patient is sitting up in bed in no acute distress. Patient is still stating she has mild nausea and not much of an appetite. Has been eating yogurt and tolerating well. Patient denies any vomiting at this time. Patient is still anxious about going home while not feeling much better and would like to build up some of her strength while she is in the hospital. Oncology is following closely. Patient denies any chest pain, shortness of breath, or palpitations at this time. Patient remains afebrile. Patient was being followed by cardiology and from their perspective patient may follow-up in the outpatient setting upon discharge. Patient is currently still on Zofran IV as needed for nausea and per oncology recommendations patient was started on Marinol to increase oral intake. Guarded prognosis. Objective - Vital Signs Vital signs: Vital Signs Temp 98.2 F 03/10/19 04:58 Pulse 71 03/10/19 08:00 Resp 18 03/10/19 08:00 BP 102/51 03/10/19 04:58 Pulse Ox 96 03/10/19 04:58 Intake & Output 03/09/19 03/10/19 03/10/19 18:59 06:59 18:59 Intake Total 720 820 Balance 720 820 Intake: IV 20 Invasive Line 1 20 Oral 720 800 Other: Voiding Method Toilet Toilet Toilet # Voids 1 1 2 - Exam Gen: This is a 59-year-old female sitting up in bed in no acute distress. Vital signs are stable. Blood pressure is 102/51, respirations are 18, pulse is 71, temp is 98.2 F, oxygen saturation is 96% on room air. HEENT: Head is atraumatic, normocephalic. Pupils equal, round. Sclerae is anicteric. NECK: Supple. No JVD. No lymphadenopathy. No thyromegaly. LUNGS: Diminished breath sounds at the bases a few scattered crackles noted. No wheezes noted on exam. No intercostal retractions. HEART: Regular rate and rhythm. No murmur. ABDOMEN: Soft. Thin . Bowel sounds are present. No masses. No tenderness. EXTREMITIES: No pedal edema. No calf tenderness. NEUROLOGICAL: Patient is awake, alert and oriented x3. Cranial nerves 2 through 12 are grossly intact. - Labs CBC & Chem 7: 03/10/19 06:19 03/10/19 06:19 Labs: Abnormal Lab Results - Last 24 Hours (Table) 03/10/19 03/10/19 Range/Units 06:19 06:19 RDW 18.5 H (11.5-15.5) % Plt Count 138 L (150-450) k/uL Calcium 8.1 L (8.4-10.2) mg/dL AST 99 H (14-36) U/L Total Protein 5.5 L (6.3-8.2) g/dL Albumin 2.8 L (3.5-5.0) g/dL Assessment and Plan Assessment: Chest pain, possible acute non-ST segment elevated myocardial infarction with a troponin of 0.071 Stage IV breast cancer Shortness of breath Metastatic breast cancer, ERPR positive, HER2 negative Intractable vomiting and nausea Elevated AST, possibly secondary from metastasis and increased bilirubin Increased WBC History of anxiety History of ongoing nicotine dependence Recommendations and discussion: Recommend to continue current medications, management, and symptomatic treatment. Will continue to monitor vital signs and labs closely. Cardiology and hematology/oncology are following. Per oncology recommendations patient was started on Marinol to increase her oral intake. Discussed with the patient at length about attempting to increase her oral intake to at least 30-40% of her meals to build up her strength. Guarded prognosis. Further recommendations to follow. Possible discharge in 24-48 hours.
--- NOTE | 2019-03-10 16:20 | P.PN ---
Subjective Progress Note Date: 03/10/19 Principal diagnosis: Progressive Metastatic Breast Cancer Tolerating Diet and eating well Objective - Vital Signs Vital signs: Vital Signs Temp 98.2 F 03/10/19 04:58 Pulse 71 03/10/19 08:00 Resp 18 03/10/19 08:00 BP 102/51 03/10/19 04:58 Pulse Ox 96 03/10/19 04:58 Intake & Output 03/09/19 03/10/19 03/10/19 18:59 06:59 18:59 Intake Total 720 820 Balance 720 820 Intake: IV 20 Invasive Line 1 20 Oral 720 800 Other: Voiding Method Toilet Toilet Toilet # Voids 1 1 2 - Exam - Constitutional General appearance: no acute distress - EENT Eyes: EOMI, PERRLA ENT: hearing grossly normal, normal oropharynx - Neck Neck: no lymphadenopathy Thyroid: bilateral: normal size - Respiratory Respiratory: bilateral: CTA - Cardiovascular Rhythm: regular Heart sounds: normal: S1, S2 - Gastrointestinal General gastrointestinal: normal bowel sounds, soft - Integumentary Integumentary: normal - Neurologic Neurologic: CNII-XII intact - Musculoskeletal Musculoskeletal: generalized weakness, strength equal bilaterally - Labs CBC & Chem 7: 03/11/19 07:58 03/11/19 07:58 Labs: Abnormal Lab Results - Last 24 Hours (Table) 03/10/19 03/10/19 Range/Units :19 06:19 RDW 18.5 H (11.5-15.5) % Plt Count 138 L (150-450) k/uL Calcium 8.1 L (8.4-10.2) mg/dL AST 99 H (14-36) U/L Total Protein 5.5 L (6.3-8.2) g/dL Albumin 2.8 L (3.5-5.0) g/dL Assessment and Plan Plan: Atypical chest pain - The patient has has this complaint off and on, with CTA in the past, in 11/22 and 01/22 been negative. - Given her history of metastatic malignancy, worsening of symptoms, as well as elevated troponin, CTA will need to be repeated to rule out PE. If negative the source could be her widespread bone metastasis. Intractable vomiting Etiology of this is not known at this time. However progression of malignancy is definite possibility with computed tomography scan on 02/12/19 indicating the same. malignancy could cause the same due to progression of liver metastasis, and/or development of peritoneal disease causing diminished bowel motility. Of note, she has been complaining of generalized abdominal pain, as well as episodes of constipation. - On exam, she does not appear to be obviously obstructed. - Supportive treatment for nausea with IV antiemetics. Continue restricted diet at this time - Check CT of the abdomen and pelvis. Stage 4 carcinoma of breast, ER+ - Progressive disease on Faslodex, discussed with Dr. Foy Diagnostic and therapeutic circumstances as described. The patient has widespread metastatic disease, and is currently on Faslodex alone, due to intolerance of Afinitor. - Her computed tomography scan from 02/12/19, as well as current clinical presentation both are concerning for progression. Additional imaging to be ordered as noted above. Decreased PO intake: - Trial Marinol Plan: Observe symptom management and for improvement if not improved and secondary to cancer burden may benefit from IV chemo to decrease burden and then start Capcitabine.
[2019-03-10] MEDS ORDERED: PETROLATUM, WHITE OINT 50 GM TUBE TOPICAL PRN (16:56)
[2019-03-10] MEDS: HYDROmorphone 2 MG TAB PO PRN (17:46)
[2019-03-11] MEDS: DRONABINOL 2.5 MG CAP PO SCH (07:36)
[2019-03-11] MEDS: METOCLOPRAMIDE 5 MG TAB PO SCH ×2 (07:37→12:55)
[2019-03-11] MEDS: PANTOPRAZOLE 40 MG TABLET PO SCH (07:38)
[2019-03-11] MEDS: ASPIRIN 325 MG TAB PO SCH (07:40)
[2019-03-11] MEDS: HEPARIN SODIUM,PORCINE 5,000 UNIT/ML 1 ML VIAL SQ SCH (07:40)
[2019-03-11] MEDS: NICOTINE 14MG/24HR PATCH TRANSDERM SCH (07:42)
[2019-03-11] MEDS: IPRATROPIUM-ALBUTEROL 3 ML NEB INHALATION SCH ×2 (08:08→11:31)
[2019-03-11 08:23] LABS: Anisocytosis Slight; Basophils # (A) 0.1 k/uL (0-0.2); Basophils % (A) 1 %; Eosinophils # (A) 0.7 k/uL (0-0.7); Eosinophils % (A) 12 %; HCT 38.3 % (34.0-46.0); HGB 12.2 gm/dL (11.4-16.0); Hypochromasia Slight; Lymphocytes # (A) 0.8 k/uL (1.0-4.8); Lymphocytes % (A) 14 %; MCH 28.8 pg (25.0-35.0); MCHC 31.9 g/dL (31.0-37.0); MCV 90.1 fL (80.0-100.0); Mean Platelet Volume 6.7; Monocytes # (A) 0.3 k/uL (0-1.0); Monocytes % (A) 6 %; Neutrophils # (A) 3.5 k/uL (1.3-7.7); Neutrophils % (A) 64 %; Platelet Count 160 k/uL (150-450); RBC 4.26 m/uL (3.80-5.40); RDW 18.1 % (11.5-15.5); WBC 5.5 k/uL (3.8-10.6)
[2019-03-11 08:40] LABS: African American GFR (CKD) >90 (>60 ml/min/1.73 sqM); Anion Gap 8 mmol/L; Blood Urea Nitrogen 10 mg/dL (7-17); Calcium 8.3 mg/dL (8.4-10.2); Carbon Dioxide 25 mmol/L (22-30); Chloride 104 mmol/L (98-107); Glucose 76 mg/dL (74-99); Potassium 3.8 mmol/L (3.5-5.1); Sodium 137 mmol/L (137-145)
--- NOTE | 2019-03-11 12:14 | P.PN ---
Subjective Progress Note Date: 03/11/19 Principal diagnosis: Progressive Metastatic Breast Cancer Eating well and increased po intake, abdominal symptoms improved Objective - Vital Signs Vital signs: Vital Signs Temp 98.4 F 03/11/19 05:18 Pulse 72 03/11/19 05:18 Resp 16 03/11/19 05:18 BP 114/71 03/11/19 05:18 Pulse Ox 93 L 03/11/19 05:18 Intake & Output 03/10/19 03/11/19 03/11/19 18:59 06:59 18:59 Intake Total 830 Balance 830 Intake: IV 30 Invasive Line 1 30 Oral 800 Other: Voiding Method Toilet Toilet # Voids 2 1 # Bowel Movements 1 - Exam - Constitutional General appearance: no acute distress - EENT Eyes: EOMI, PERRLA ENT: hearing grossly normal, normal oropharynx - Neck Neck: no lymphadenopathy Thyroid: bilateral: normal size - Respiratory Respiratory: bilateral: CTA - Cardiovascular Rhythm: regular Heart sounds: normal: S1, S2 - Gastrointestinal General gastrointestinal: normal bowel sounds, soft - Integumentary Integumentary: normal - Neurologic Neurologic: CNII-XII intact - Musculoskeletal Musculoskeletal: generalized weakness, strength equal bilaterally - Labs CBC & Chem 7: 03/11/19 07:58 03/11/19 07:58 Labs: Abnormal Lab Results - Last 24 Hours (Table) 03/11/19 03/11/19 Range/Units 07:58 07:58 RDW 18.1 H (11.5-15.5) % Lymphocytes # 0.8 L (1.0-4.8) k/uL Calcium 8.3 L (8.4-10.2) mg/dL Assessment and Plan Plan: Atypical chest pain - The patient has has this complaint off and on, with CTA in the past, in 11/22 and 01/22 been negative. - Given her history of metastatic malignancy, worsening of symptoms, as well as elevated troponin, CTA will need to be repeated to rule out PE. If negative the source could be her widespread bone metastasis. Intractable vomiting Etiology of this is not known at this time. However progression of malignancy is definite possibility with computed tomography scan on 02/12/19 indicating the same. malignancy could cause the same due to progression of liver metastasis, and/or development of peritoneal disease causing diminished bowel motility. Of note, she has been complaining of generalized abdominal pain, as well as episodes of constipation. - On exam, she does not appear to be obviously obstructed. - Supportive treatment for nausea with IV antiemetics. Continue restricted diet at this time - Check CT of the abdomen and pelvis. Stage 4 carcinoma of breast, ER+ - Progressive disease on Faslodex, discussed with Dr. Foy Diagnostic and therapeutic circumstances as described. The patient has widespread metastatic disease, and is currently on Faslodex alone, due to intolerance of Afinitor. - Her computed tomography scan from 02/12/19, as well as current clinical presentation both are concerning for progression. Additional imaging to be ordered as noted above. Decreased PO intake: - Trial Marinol Plan: Observe symptom management and for improvement if not improved and secondary to cancer burden may benefit from IV chemo to decrease burden and then start Capcitabine. - Plan to see Dr. Foy or [place] in office 1-2 weeks - Discussed with primary team and ok for discharge from oncology standpoint
[2019-03-11 12:45] VITALS: BP 134/79; PULSE 76; RESP 20; TEMP 97.7
--- NOTE | 2019-03-11 13:03 | P.DS ---
Providers Date of admission: 03/08/19 00:39 Expected date of discharge: 03/11/19 Attending physician: Clarissa Severino Consults: 03/08/19 00:39 Consult Physician Routine Consulting Provider: Real Foy Consult Reason/Comments: History of breast cancer Do you want consulting provider notified?: Yes, Notify in am Consult Physician Urgent Consulting Provider: Colten Aguilar Consult Reason/Comments: Elevated troponin, atypical chest pain, history of breast cancer Do you want consulting provider notified?: Yes, Notify in am Primary care physician: Real Foy [facility] Course: Final diagnosis Chest pain, possible acute non-ST segment elevation myocardial infarction with a troponin of 0.071 shortness of breath Stage IV breast cancer Metastatic breast cancer, ERPR positive, HER2 negative [place] intractable vomiting and nausea Elevated AST, possibly secondary for metastasis and increased bilirubin Increased WBCs History of anxiety History of ongoing nicotine dependence Discharge disposition Patient is being discharged in a stable condition with guarded prognosis to home. Home care will be following. Patient is to follow-up with Dr. Foy or Alem GARCIA in the office in 1-2 weeks. History of present illness This is a 59-year-old female who was admitted for shortness of breath, chest pain, and abdominal discomfort and was being closely followed. Multiple imaging studies were done during hospitalization suggesting possible progression of metastasis. Oncology was following closely. Patient continues to have a poor appetite throughout hospitalization but had been progressing slowly and able to tolerate without nausea or vomiting the last day. Patient has been consuming 30% of her meals. Patient will continue on Reglan 30 minutes before meals in an attempt to aid in decreasing nausea and increasing her oral intake. Discussed with the patient at length about avoiding caffeine, pop, and other substances that will irritate her stomach until she has improved her oral intake. Patient has been tolerating yogurt and will continue. Discussed with the patient about discontinuing tobacco use at length. Counseling was provided. Patient denies any chest pain, shortness of breath, or palpitations at this time. Patient has remained afebrile. Patient has been going to the bathroom with no difficulties. Currently patient's condition is stable with much improvement. Patient will follow-up with Dr. Foy in the outpatient setting in 1-2 weeks as discussed. On exam vital signs are stable. Blood pressure is 134/79, heart rate is 76, respirations are 20, oxygen saturation is 96% on room air, temp is 97.7F. Cardio S1 and S2 are normal. Respiratory system shows diminished breath sounds at the bases otherwise clear upon auscultation. Abdomen is soft, thin, non- tender. Nervous system shows no focal deficits and gait is steady. Please refer to medication reconciliation sheet for a list of medications. Patient Condition at Discharge: Fair Plan - Discharge Summary Discharge Rx Participant: No New Discharge Prescriptions: New Dronabinol [Marinol] 2.5 mg PO AC-BID #12 cap Metoclopramide [Reglan] 5 mg PO AC-TID 30 Days #90 tab Ondansetron [Zofran] 4 mg PO Q8HR PRN #12 tab PRN Reason: Nausea Pantoprazole [Protonix] 40 mg PO AC-BRKFST #30 tablet. Continue HYDROmorphone [Dilaudid] 4 mg PO Q4H PRN PRN Reason: back pain fentaNYL 75MCG/HR PATCH [Duragesic 75MCG/HR] 1 patch TRANSDERM Q72H ALPRAZolam [Xanax] 0.5 mg PO Q8H PRN PRN Reason: Anxiety Discharge Medication List HYDROmorphone [Dilaudid] 4 mg PO Q4H PRN 06/24/18 [History] fentaNYL 75MCG/HR PATCH [Duragesic 75MCG/HR] 1 patch TRANSDERM Q72H 10/07/18 [History] ALPRAZolam [Xanax] 0.5 mg PO Q8H PRN 03/07/19 [History] Dronabinol [Marinol] 2.5 mg PO AC-BID #12 cap 03/11/19 [Rx] Metoclopramide [Reglan] 5 mg PO AC-TID 30 Days #90 tab 03/11/19 [Rx] Ondansetron [Zofran] 4 mg PO Q8HR PRN #12 tab 03/11/19 [Rx] Pantoprazole [Protonix] 40 mg PO AC-BRKFST #30 tablet. 03/11/19 [Rx] Follow up Appointment(s)/Referral(s): [facility] Visiting Nurse, [NON-STAFF] - Real Foy MD [Primary Care Provider] - 1-2 days Activity/Diet/Wound Care/Special Instructions: Activity Limited until follow-up Continue current diet, continue to consume at least 30-40% of each meal Follow-up with Dr. Foy in the clinic this week Discharge Disposition: HOME WITH HOME HEALTH SERVICES
== END 2019-03-11 13:50 | disposition home health service (06) | DRG 281 ==
LOC: EC 19:36 → 3SCARD 03-08 00:39 → 3NMEDONC 03-10 17:25
PROVIDERS: ADMIT Internal Medicine; ATTEND Internal Medicine
DX: I21.4 Non-ST elevation (NSTEMI) myocardial infarction (principal); C79.51 Secondary malignant neoplasm of bone; M48.54XA Collapsed vertebra, not elsewhere classified, thoracic region, initial encounter for fracture; C50.919 Malignant neoplasm of unspecified site of unspecified female breast; E83.52 Hypercalcemia; E86.0 Dehydration; F17.200 Nicotine dependence, unspecified, uncomplicated; K59.00 Constipation, unspecified; M19.90 Unspecified osteoarthritis, unspecified site; F41.9 Anxiety disorder, unspecified; R62.7 Adult failure to thrive; Z17.0 Estrogen receptor positive status [ER+]; Z80.3 Family history of malignant neoplasm of breast; Z82.3 Family history of stroke; Z82.49 Family history of ischemic heart disease and other diseases of the circulatory system; Z85.3 Personal history of malignant neoplasm of breast; Z92.3 Personal history of irradiation; Z88.5 Allergy status to narcotic agent; Z98.890 Other specified postprocedural states
CPT/HCPCS: 36415; 71046; 71275; 74177; 80048; 80053; 80061; 81001; 82550; 83690; 83735; 83880; 84484; 85025; 85610; 85730; 86300; 93005; 93306; 94640; 94760; 96361; 96365; 96375; 96376; 99285

== ENCOUNTER → 2019-03-22 | Outpatient (CLI) | payer MEDICARE ==
--- NOTE | 2019-03-22 23:36 | MR ---
EXAMINATION TYPE: MR brain wo/w con DATE OF EXAM: 03/22/2019 COMPARISON: 01/13/2019 HISTORY: Breast Ca / Headaches /Dizziness TECHNIQUE: Multiplanar, multisequence images of the brain and brainstem is performed without and with IV contras t, utilizing 6 mL intravenous Gadavist . FINDINGS: There is some cerebral cortical atrophy. There is no mass effect nor midline shift. There i s no evidence of intracranial hemorrhage. There are numerous scattered foci of increased signal in th e periventricular white matter on the T2 and FLAIR images. These measure up to 8 mm. Total number is approximately 20. Corpus callosum is intact. Sella turcica is intact. Brainstem has fairly normal sig nal pattern. There is 13 x 10 mm ring-enhancing focus in the cortex right inferior cerebellar hemisphere. There is a second 10 mm focus of enhancement in the more posterior inferior right cerebellar hemisphere. Thes e are best demonstrated on the coronal images. There is normal contrast opacification of the venous s inuses. IMPRESSION: There are 2 enhancing foci in the inferior right cerebellar hemisphere suggestive of meta static disease and appear larger than the last MR scan of 01/13/2019. Numerous white matter high signal foci in both cerebral hemispheres without enhancement could relate to chronic small vessel ischemia or demyelinating disease. These appear unchanged.
== END | disposition home or self-care (01) ==
LOC: RADMRIMAIN 19:46
PROVIDERS: ATTEND Internal Medicine Hematology & Oncology
DX: C50.312 Malignant neoplasm of lower-inner quadrant of left female breast (principal)
CPT/HCPCS: 70553; A9585